=== PATIENT | female | born 1970 | race African-American/Black ===

== ENCOUNTER → 2016-04-07 | Outpatient (CLI) | payer MEDICARE, OTHER ==
[~2016-04-07] MED LIST: ACETAMINOPHEN PO; ADVAIR 250-501 EAC1 INH; ADVAIR 250-501 EACH INH; ADVAIR 2501 DISK W/D PO; ALB/IPRATROPIUM/1 E1 INH; ALBUTEROL 0.5ML INH; ALBUTEROL MININEB NEB; ALBUTEROL17 GM INH; ALDACTONE PO; ALDACTONE25 MG PO; ALPRAZOLAM PO; ALPRAZOLAM1 MG PO; AMITRIPTYLINE H25 MG PO; AMITRIPTYLINE H75 MG PO; ANTIVERT PO; ASPIRIN EC81 M1 PO; ASPIRIN81 M2 PO; AVANDIA PO; BUDESONIDE EC3 MG PO; CARBAMAZEPINE200 M3 PO; CARDIZEM60 M1 PO; CARVEDILOL6.25 MG PO; CIMZIA200 MG/KIT SQ; CIMZIA200 MG/KIT SUBQ; CIMZIA400 MG PO; CIMZIA400 MG/2 M SQ; CLOPIDOGREL75 MG PO; COLCHICINE PO; COMBIVENT INH14.7 GM INH; COMBIVENT RESPIM4 GM INH; COMBIVENT U/D3 M2 INH; COREG6.25 MG PO; COZAAR PO; COZAAR100 MG PO; CRESTOR PO; CRESTOR40 MG PO; DAKIN'S MODIF1000 ML TOP; DEXILANT60 MG PO; DILTIAZEM 24HR120 M1 PO; DILTIAZEM 24HR120 MG PO; DOXYCYCLINE PO; ENTOCORT EC3 MG PO; ENTYVIO300 MG; EQUETRO100 MG PO; FLEXERIL PO; GEODAN PO; GLUCOPHAGE XR750 MG PO; HUMALOG100 U/M2 SUBQ; HUMALOG100 U/ML; HUMALOG100 U/ML SUBQ; HUMALOG100 UNIT/1; HUMALOG100 UNIT/1 SUBQ; HUMALOG100 UNIT/2; HUMIRA; HYDROCODON-ACE1 EAC5 PO; HYDROCODONE-APA1 T54 PO; HYDROXYZINE HCL25 M1 PO; IMDUR-ER30 M1 PO; IMDUR-ER30 M3 PO; JANUVIA PO; JANUVIA100 MG PO; LANSOPRAZOLE30 M2 PO; LANTUS100 U/ML SUBQ; LASIX PO; LEVAQUIN750 MG PO; LEVEMIR FL100 UNIT/1 SUBQ; LEVEMIR SUBQ; LEVEMIR100 UNITS/ SUBQ; LISINOPRIL PO; LISINOPRIL30 MG PO; LORTAB 7.5-5001 TAB PO; LOSARTAN POTAS100 MG PO; LOTENSIN HCT 101 TAB PO; MEDI-MECLIZINE25 M1 PO; METFORMIN PO; MIRALAX17 GM DOB; MIRALAX17 GM PO; MOTION RELIEF25 MG PO; MULTI VITAMIN1 EACH PO; MULTIVITAMIN1 UDCAP PO; MULTIVITAMINS1 EAC3 PO; NITROSTAT0.4 MG PO; NITROSTAT0.4 MG SL; NORCO 10-325 TA1 TAB PO; NOVOLOG100 U/ML; OXYCODONE-ACET1 EAC1 PO; PARAFON FORTE500 M2 PO; PATIENT'S PHARMACY; PERCOCET10 PO; PHENERGAN PO; PHENERGAN25 M1; PREMARIN PO; PREVACID PO; PROVENTIL INH0.5 ML NEB; TEGRETOL PO; TEGRETOL-XR200 MG PO; UCERIS9 MG PO; VIBRAMYCIN100 M1 PO; VITAMIN D1000 UNI2 PO; VITAMIN D22000 UNIT PO; VITAMIN D250000 UNIT PO; VITAMIN D350000 UNIT PO; VOLTAREN 0.1%2.5 M1 TOP; VOLTAREN50 MG PO; XANAX1 MG PO
[2016-04-07 15:34] LABS: HEMATOCRIT 37.6 % (35.0-45.0); HEMOGLOBIN 12.5 gm/dL (12.0-16.0); MEAN CELL VOLUME 87.9 FL (83-96); MEAN CORPUSCULAR HEMOGLOBIN 29.1 PG (28-34); MEAN CORPUSCULAR HGB CONC 33.1 g/dL (30-36); MEAN PLATELET VOLUME 7.4 FL (6.5-11.5); RED BLOOD COUNT 4.28 X10e (3.90-5.30); RED CELL DISTRIBUTION WIDTH 15.1 % (11.0-15.5); WHITE BLOOD COUNT 8.5 X10e3 (4.0-10.5)
[2016-04-07 15:39] LABS: URINE APPEARANCE CLOUDY; URINE BACTERIA AUWI NEG (NEGATIVE); URINE BLOOD NEG (NEG); URINE COLOR DK YELLOW; URINE GLUCOSE NEG (NEG); URINE KETONE TRACE (NEG); URINE LEUKOCYTE ESTERASE 1+ (NEG); URINE NITRATE NEG (NEG); URINE PH 5.5 (5-8); URINE PROTEIN 1+ (NEG); URINE SPECIFIC GRAVITY 1.034 (1.003-1.035); URINE SQUAMOUS EPITHELIAL CELL MOD /[HPF]
[2016-04-07 15:47] LABS: URINE BILIRUBIN NEG (NEG); URINE MUCUS PRESENT
[2016-04-07 15:56] LABS: BLOOD UREA NITROGEN 12 mg/dL (9-23); CALCIUM SERUM 9.7 mg/dL (8.4-10.2); CARBON DIOXIDE 29 mmol/L (22-31); CHLORIDE 106 mmol/L (100-111); CREATININE SERUM 0.8 mg/dL (0.6-1.4); GLOM FILT RATE Estimated ABOVE60 mL/min (>60); GLUCOSE FASTING 101 mg/dL (70-110); SODIUM 143 mmol/L (135-145)
[2016-04-07 16:02] LABS: URINE SOURCE CLEAN CATCH
== END | disposition home or self-care (01) ==
LOC: CAMB 14:31
PROVIDERS: Orthopaedic Surgery
DX: R22.31 Localized swelling, mass and lump, right upper limb (principal)
CPT/HCPCS: 36415; 80048; 81003; 85027; 87086

== ENCOUNTER → 2016-04-10 | Day surgery (SDC) | payer MEDICARE, OTHER ==
--- NOTE | ~2016-04-10 | OR ---
Unit #: [id number] #: [id number] Patient: CLEMENT RODRIGEZ [id number] [address] [place], [place] [address] [id number] O MR#: [id number] NAME: CLEMENT RODRIGEZ ROOM: Date of Procedure: 04/10/2016 Admission Date: 04/10/2016 Surgeon: Deng Salamanca M.D. : 1970 Attending Physician: Deng Salamanca M.D. Primary Care Physician: Primary Care Physician No OPERATIVE REPORT PREOPERATIVE DIAGNOSIS Painful mass on left shoulder and arm. 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 PROCEDURE PERFORMED Excision of mass, left humerus. HISTORY AND FINDINGS The patient is a 45-year-old, who has been having progressively increasing pain in her left shoulder, which had been treated conservatively. Had an MRI revealed a mass, so she was evaluated by me. The nature of the problem was discussed with the patient and the treatment options of operative versus nonoperative treatment pros and cons of each was discussed. The patient wants to go with the procedure as she has been symptomatic. Procedure was explained including risks of anesthesia and complications of surgery and considering the location of the mass, injury to the axillary nodes and possibly the radial nerve and its implications have been fully reviewed. Also possible recurrence infection have also been discussed. The patient voices understanding and wishes to proceed and all questions have been answered. DESCRIPTION OF PROCEDURE After induction of general anesthesia, the patient was placed in the right lateral position in a silvestre bag with all bony prominences adequately padded. Then, the left shoulder and upper arm were prepped and draped free. Time-out was called. Operative site was confirmed. Then, by deep palpation, it was possible to feel the mass, measuring approximately 7 cm x 4 cm just distal to the posterior axillary fold in the arm. Skin incision approximately 6 to 7 cm long was made over the mass. Incision deepened down and by sharp dissection carried down to the subcutaneous tissue and by blunt dissection carried down to the deep fascia and by palpating the mass, the triceps muscle was split and glistening yellow lipomatous mass was seen visible through the triceps muscle which was dissected off the mass, both medially and laterally by blunt and sharp dissection. The inferior end of the mass was identified and the mass was found quite firmly adherent to the surrounding muscular tissue, so it could not be enucleated and had to be dissected off in certain areas. Then, there was a pedicle in the axillary fold near the quadrangular space. Precautions were taken to avoid any neurovascular injury, so the whole lobulated mass was excised in one piece making sure none was left Unit #: [id number] #: [id number] Patient: CLEMENT RODRIGEZ and sent for histopathological examination. The mass measured approximately 7 cm x 4 cm. Then, thorough irrigation was done and the triceps was approximated using 2-0 Vicryl and 2-0 Vicryl was used for the subcutaneous tissue and 3-0 nylon for the skin. Sterile compression dressing and a sling immobilization was given. Blood loss less than 10 mL. The patient received preoperative antibiotics, also received a block for pain management and she was transferred to the recovery room in satisfactory condition. POSTOPERATIVE INSTRUCTIONS 1. Ice packs to the left arm and miyag-dd-itpbte exercises. 2. [place] 10 mg p.o. q.6 hours p.r.n. 3. She was given a followup appointment. Return to my office in 2 weeks. If any problems to contact me. Dictated by... Moira Garcia/rishabh TD: 04/11/2016 02:45 JOB #: [id number] OPERATIVE REPORT X Deng Salamanca MD X PROCEDURE OPERATIVE NOTE
== END | disposition home or self-care (01) ==
LOC: CSUR 12:44
DX: M79.89 Other specified soft tissue disorders (principal); E65 Localized adiposity; E11.9 Type 2 diabetes mellitus without complications; I25.10 Atherosclerotic heart disease of native coronary artery without angina pectoris; I50.9 Heart failure, unspecified; J45.909 Unspecified asthma, uncomplicated; F17.210 Nicotine dependence, cigarettes, uncomplicated; Z86.73 Personal history of transient ischemic attack (TIA), and cerebral infarction without residual deficits; Z88.0 Allergy status to penicillin; Z88.1 Allergy status to other antibiotic agents; Z88.8 Allergy status to other drugs, medicaments and biological substances; Z79.4 Long term (current) use of insulin; Z79.82 Long term (current) use of aspirin; Z79.899 Other long term (current) drug therapy; Z90.49 Acquired absence of other specified parts of digestive tract; Z90.710 Acquired absence of both cervix and uterus; Z98.890 Other specified postprocedural states
CPT/HCPCS: 82947; 88304; J0690; J1650; J2250; J2405; J2795; J3010

== ENCOUNTER 2016-07-11 19:44 | Emergency (ER) | payer MEDICARE, OTHER ==
--- NOTE | ~2016-07-11 | CR172 ---
[facility] A Service of [facility] & [facility] RADIOLOGY TEXT RESULTS PATIENT: CLEMENT RODRIGEZ LOCATION: CFTX : [birth year] UNIT #: [id number] AGE: [address]: NEAL GALVEZ APRN SEX: F ORDER DR: [id number] [facility] [address] [place], [place] [address] [id number] E MR#: [id number] Acc #: [id number] NAME: CLEMENT RODRIGEZ. : 1970 SEX: F STUDY DATE/TIME: 07/11/2016 22:33 UNIT: [facility] ROOM: STUDY DESCRIPTION: CR Knee 3 Views Lt Attending Physician: Neal Galvez Aprn Ordering Physician: Neal Galvez Aprn Primary Care Physician: Shady Diaz M.D. MEDICAL IMAGING REPORT This report is preliminary unless electronic signature is present EXAM Left knee series 07/11/2016 HISTORY 46-year-old female in the ED complaining of left lateral knee pain and left lower leg pain after a fall yesterday. TECHNIQUE Three-view left knee series. FINDINGS No fracture, dislocation or other acute osseous abnormality is demonstrated. No visible knee joint effusion. IMPRESSION Negative left knee series. Dictated by... Stef Argueta M.D. THIS IS AN ELECTRONICALLY VERIFIED REPORT Stef Argueta M.D. at 07/12/2016 9:55 PM RGW/mak TD: 07/12/2016 09:43 JOB #: [id number] MEDICAL IMAGING REPORT Page 1 of 1 COPY
--- NOTE | ~2016-07-11 | CR126 ---
[facility] A Service of [facility] & [facility] RADIOLOGY TEXT RESULTS PATIENT: CLEMENT RODRIGEZ LOCATION: CFTX : [birth year] UNIT #: [id number] AGE: [address]: NEAL GALVEZ APRN SEX: F ORDER DR: [id number] [facility] [address] [place], [place] [address] [id number] E MR#: [id number] Acc #: [id number] NAME: CLEMENT RODRIGEZ. : 1970 SEX: F STUDY DATE/TIME: 07/11/2016 22:27 UNIT: [facility] ROOM: STUDY DESCRIPTION: CR Foot Complete Min 3 View Lt Attending Physician: Neal Galvez Aprn Ordering Physician: Neal Galvez Aprn Primary Care Physician: Shady Diaz M.D. MEDICAL IMAGING REPORT This report is preliminary unless electronic signature is present EXAM Left foot 07/11/2016 HISTORY 46-year-old female complaining of left knee pain extending into left lower leg and ankle with soft tissue swelling after a fall yesterday. TECHNIQUE Three-view left foot series. FINDINGS No fracture, dislocation or other acute osseous abnormality. Hallux valgus deformity with mild degenerative changes at the first MTP joint. IMPRESSION No acute osseous abnormality. Dictated by... Stef Argueta M.D. THIS IS AN ELECTRONICALLY VERIFIED REPORT Stef Argueta M.D. at 07/12/2016 9:55 PM RGW/mak TD: 07/12/2016 09:39 JOB #: [id number] MEDICAL IMAGING REPORT Page 1 of 1 COPY
--- NOTE | ~2016-07-11 | CR252 ---
[facility] A Service of [facility] & [facility] RADIOLOGY TEXT RESULTS PATIENT: CLEMENT RODRIGEZ LOCATION: CFTX : [birth year] UNIT #: [id number] AGE: [address]: NEAL GALVEZ APRN SEX: F ORDER DR: [id number] [facility] [address] [place], [place] [address] [id number] E MR#: [id number] Acc #: [id number] NAME: CLEMENT RODRIGEZ. : 1970 SEX: F STUDY DATE/TIME: 07/11/2016 22:29 UNIT: [facility] ROOM: STUDY DESCRIPTION: CR Tibia and Fibula 2 Views Lt Attending Physician: Neal Galvez Aprn Ordering Physician: Neal Galvez Aprn Primary Care Physician: Shady Diaz M.D. MEDICAL IMAGING REPORT This report is preliminary unless electronic signature is present EXAM Left tibia-fibula, 07/11/2016 HISTORY Left knee and left lower leg pain after a fall yesterday. TECHNIQUE AP and lateral radiographs of the left tibia and fibula. FINDINGS The examination is negative. No fracture, dislocation or other osseous abnormality. IMPRESSION Negative left tibia-fibula series. Dictated by... Stef Argueta M.D. THIS IS AN ELECTRONICALLY VERIFIED REPORT Stef Argueta M.D. at 07/12/2016 9:55 PM RGW/mak TD: 07/12/2016 09:42 JOB #: [id number] MEDICAL IMAGING REPORT Page 1 of 1 COPY
[~2016-07-11 19:44] MED LIST changes: -ACETAMINOPHEN PO; -ALDACTONE PO; -ALDACTONE25 MG PO; -ANTIVERT PO; -CARBAMAZEPINE200 M3 PO; -CIMZIA400 MG PO; -CLOPIDOGREL75 MG PO; -COMBIVENT RESPIM4 GM INH; -COZAAR PO; -CRESTOR PO; -ENTYVIO300 MG; -EQUETRO100 MG PO; -GLUCOPHAGE XR750 MG PO; -HUMALOG100 UNIT/1; -HUMALOG100 UNIT/1 SUBQ; -HUMALOG100 UNIT/2; -HYDROCODON-ACE1 EAC5 PO; -HYDROXYZINE HCL25 M1 PO; -IMDUR-ER30 M3 PO; -JANUVIA100 MG PO; -LANSOPRAZOLE30 M2 PO; -LEVAQUIN750 MG PO; -LISINOPRIL PO; -MULTIVITAMINS1 EAC3 PO; -NITROSTAT0.4 MG PO; -OXYCODONE-ACET1 EAC1 PO; -PATIENT'S PHARMACY; -PROVENTIL INH0.5 ML NEB; -VITAMIN D350000 UNIT PO; -VOLTAREN 0.1%2.5 M1 TOP
== END 2016-07-12 00:39 | disposition home or self-care (01) ==
LOC: CFTX 19:44 → CED 19:44 → CFTX 22:17
DX: S93.602A Unspecified sprain of left foot, initial encounter (principal); M25.562 Pain in left knee; I11.0 Hypertensive heart disease with heart failure; I50.9 Heart failure, unspecified; E11.9 Type 2 diabetes mellitus without complications; J44.9 Chronic obstructive pulmonary disease, unspecified; Z88.0 Allergy status to penicillin; Z88.8 Allergy status to other drugs, medicaments and biological substances; Z79.82 Long term (current) use of aspirin; Z79.899 Other long term (current) drug therapy; W18.30XA Fall on same level, unspecified, initial encounter; Y92.009 Unspecified place in unspecified non-institutional (private) residence as the place of occurrence of the external cause
CPT/HCPCS: 29505; 29540; 73562; 73590; 73630; 99284

== ENCOUNTER 2016-09-24 23:05 | Inpatient (IN) | payer MEDICARE, OTHER ==
[~2016-09-24] VITALS: Ht 177.8 cm; Wt 84.8 kg
--- NOTE | ~2016-09-24 | EKG ---
PATIENT: CLEMENT RODRIGEZ UNIT #: [id number] Ventricular Rate: 66 BPM Atrial Rate: 66 BPM P-R Interval: 192 ms QRS Duration: 90 ms Q-T Interval: 446 ms QTC Calculation(Bezet): 467 ms P [place]: 51 degrees Calculated R [place]: -23 degrees Calculated T [place]: 159 degrees Diagnosis Line: Normal sinus rhythm Diagnosis Line: T wave abnormality, consider anterolateral Diagnosis Line: ischemia Diagnosis Line: Prolonged QT Diagnosis Line: Abnormal ECG Diagnosis Line: When compared with ECG of 27-SEP-2016 07:44, Diagnosis Line: No significant change was found Diagnosis Line: Confirmed by LUIS BRADLEY MD ([id number]) on 09/28/2016 Diagnosis Line: 10:09:29 PM INTERPRETING MD: KIRK KHANNA
--- NOTE | ~2016-09-24 | OR ---
Unit #: [id number] #: [id number] Patient: CLEMENT RODRIGEZ [id number] [address] [address] [id number] I MR#: [id number] NAME: CLEMENT RODRIGEZ ROOM: [facility] Date of Procedure: 09/25/2016 Admission Date: 09/25/2016 Surgeon: Salazar Cain M.D. : 1970 Attending Physician: Yesy Guzman M.D. Primary Care Physician: Shady Diaz M.D. PROCEDURE OPERATIVE NOTE PREOPERATIVE DIAGNOSIS Respiratory failure, aspiration pneumonia. POSTOPERATIVE DIAGNOSIS AND FINDINGS 1. Respiratory failure, aspiration pneumonia, clear airway tree. 2. No endobronchial mass or lesion. 3. No excessive secretions. PROCEDURE PERFORMED Diagnostic bronchoscopy with bronchial washing. ANESTHESIA The patient is on propofol drip. COMPLICATIONS None. PROCEDURE An informed consent was obtained from the patient's mother after explaining the benefits and risks of this procedure. The patient was prepped and positioned appropriately. The bronchoscope was advanced through her ET tube and at the level of the rimma normal saline flushes were instilled and bronchial washing was obtained. Then the bronchoscope was advanced into the left main bronchus and the left upper lobe lingula and left lower lobe were examined thoroughly and appeared normal with no endobronchial mass or excessive secretions. Bronchial washing was obtained from the left lower lobe, which will be sent for microbiology and cytology. The bronchoscope was retracted and then readvanced into the right main bronchus and the right upper lobe, right middle lobe and right lower lobe were examined, which appeared normal with no endobronchial masses or secretions. The bronchoscope was retracted out then and the patient tolerated the procedure well with no immediate complications. Dictated by... Salazar Cain M.D. Unit #: [id number] #: [id number] Patient: CLEMENT RODRIGEZ EA/gz TD: 09/25/2016 14:02 JOB #: [id number] PROCEDURE OPERATIVE NOTE Page 1 of 1 X SALAZAR GOODEN MD PROCEDURE OPERATIVE NOTE
--- NOTE | ~2016-09-24 | HP ---
Unit #: [id number] #: [id number] Patient: CLEMENT DELONG [id number] [address] [place], [place] [address] [id number] I MR#: [id number] NAME: CLEMENT DELONG. ROOM: [facility] Age: 46 Sex: F Admission Date: 09/25/2016 : 1970 Attending Physician: Yesy Guzman M.D. Primary Care Physician: Shady Diaz M.D. HISTORY AND PHYSICAL ADMISSION DIAGNOSES 1. Acute respiratory failure. 2. Aspiration pneumonia. 3. Insulin-dependent diabetes with hyperglycemia with blood glucose over 600 at time of admission. 4. History of TIA. 5. History of coronary artery disease. 6. COPD. 7. Bipolar disorder. HISTORY OF PRESENT ILLNESS Ms. Delong is a 46-year-old female with extensive past medical history including coronary artery disease, diabetes, Crohn disease, COPD, hypertension, bipolar disorder, TIA and anemia of chronic disease who apparently fell ill yesterday, started vomiting. She was brought to the emergency room, was found in acute respiratory failure, was intubated. Her initial blood glucose was 600. Was admitted to the ICU on mechanical ventilation. CT of the chest showed left lower lobe pneumonia. She was treated with antibiotics and bronchodilators. Made good progress and was extubated today. Currently she denies any other problems. Denies any chest pain, shortness of air, headache, dizziness, fever, chills, nausea, vomiting, diarrhea or abdominal pain. REVIEW OF SYSTEMS A 12-point review of systems on this patient is basically negative except as above. PAST MEDICAL HISTORY As above in HPI. PAST SURGICAL HISTORY Significant for hysterectomy, appendectomy, neck fusion, coronary artery stent placement. HOME MEDICATIONS Include Advair, Combivent, Proventil, alprazolam, aspirin, Uceris, carbamazepine, Coreg, simians, Crestor, Dexilant, diltiazem, lispro sliding scale and 20 units t.i.d. with meals, [place] 10, Imdur, Cozaar, Levemir 60 units b.i.d., meclizine, Glucophage, MiraLAX, multivitamin, Nitrostat, vitamin D2, Januvia. ALLERGIES Penicillin, clindamycin, gabapentin. Unit #: [id number] #: [id number] Patient: CLEMENT DELONG SOCIAL HISTORY No current history of tobacco, alcohol or illicit drugs. FAMILY HISTORY Family history is significant for diabetes and hypertension. PHYSICAL EXAMINATION GENERAL: She is a 46-year-old female in no acute distress. VITAL SIGNS: BP 114/75, heart rate 82, respirations 16, temperature 100.2. HEENT: Head is atraumatic. Pupils are equal, round and reactive to light and accommodation. Extraocular muscles are intact. Oropharynx is clear. NECK: Neck is supple. No masses. No JVD. No bruit. RESPIRATORY: Chest is diminished bilaterally. CARDIOVASCULAR: S1, S2. No murmurs. ABDOMEN: Abdomen is soft, nontender, nondistended. EXTREMITIES: Lower extremities have no cyanosis, clubbing or edema. NEUROLOGIC: Patient grossly intact. No focal deficits. LABS AND DIAGNOSTICS IMAGING: Chest x-ray negative. CT as above. CT of abdomen and pelvis negative. LABORATORY: Chemistry this morning - Her blood glucose is 150, BUN and creatinine 13 and 1. Coagulation panel unremarkable. Troponin elevated at 0.21. White count 14.5. ASSESSMENT AND PLAN 1. Acute respiratory failure status post extubation. Continue bronchodilators. Pulmonary following. 2. Aspiration pneumonia. Will start on Levaquin. Initially it was written for clindamycin; however, the patient does have an allergy to clindamycin. She is also allergic to penicillin, so I cannot do Zosyn. We will go and start on Levaquin. 3. History of coronary artery disease with elevated troponin. Will ask cardiology for a consult. Trend troponin. 4. Dysphagia with aspiration on the swallow study. Will keep NPO, reevaluate tomorrow. 5. Insulin-dependent diabetes. Continue per Dr. Rudolph, who is following. 6. History of TIA in the past. 7. COPD, as above. 8. History of bipolar disorder. 9. GI and DVT prophylaxis. Continue IV PPI and Lovenox. Dictated by Moira Martines/kandy TD: 09/26/2016 11:26 JOB #: [id number] Unit #: [id number] #: [id number] Patient: CLEMENT DELONG HISTORY AND PHYSICAL Page 1 of 1 X Golden Khalil MD HISTORY AND PHYSICAL
--- NOTE | ~2016-09-24 | CO ---
Unit #: [id number] #: [id number] Patient: CLEMENT DELONG [id number] [facility] [address] [place], [place] [address] [id number] Néstor MR#: [id number] NAME: CLEMENT DELONG. ROOM: 568 Age: 46 Sex: F Admission Date: 09/25/2016 : 1970 Attending Physician: eYsy Guzman M.D. Primary Care Physician: Shady Diaz M.D. CONSULTATION REPORT REASON FOR CONSULTATION Abnormal troponin. HISTORY OF PRESENT ILLNESS Ms. Delong is a pleasant 46-year-old female, seen in room ICU 15 at [facility]. She has a history of coronary artery disease, status post stenting in the RCA she states in around 2009 at [facility]. I could not find these records in [facility]. She has a history of Crohn disease, diabetes, COPD, anemia, hypertension, bipolar disorder, continued smoking, and probable aspiration pneumonia. She felt very sick yesterday. Reported no fever, chills, night sweats, cough or sore throat, and was admitted and intubated in the field. The family thought she might have aspirated some of her vomitus when she became sick. She states to me that she had noted chest pain for the past several days. It would come on without exertion, and was relieved spontaneously within about 5 minutes. After she was extubated, she still reported some on and off chest discomfort, centered in the left parasternal region, radiated into the neck and to the shoulder. I reviewed her ECG, which showed no acute ST changes, at 2338 hours yesterday. PAST MEDICAL HISTORY 1. Coronary artery disease, status post RCA stent. 2. Diabetes. 3. Dyslipidemia. 4. Hypertension. 5. Crohn disease. 6. COPD with continued smoking. 7. Bipolar disorder. 8. History of TIA. 9. History of GERD. SOCIAL HISTORY Smoker. No alcohol or drug abuse. Does not have children. PAST SURGICAL HISTORY Hysterectomy, appendectomy, neck fusion, RCA stent placed in 2009 at [facility]. Records are pending. Unit #: [id number] #: [id number] Patient: CLEMENT DELONG FAMILY HISTORY Negative for premature atherosclerotic disease, but positive for diabetes and hypertension. ALLERGIES Penicillin, morphine, clindamycin, Neurontin, hydromorphone. REVIEW OF SYSTEMS A 12-point review of systems otherwise negative except as stated above. MEDICATIONS Advair, Combivent, Proventil, alprazolam, aspirin, carbamazepine, Coreg, Crestor, Cimzia, Uceris, Dexilant, diltiazem, Humalog, hydrocodone, Imdur, Cozaar, Levemir, meclizine, Glucophage, MiraLAX, multivitamin, Nitrostat, Januvia, vitamin D2. PHYSICAL EXAMINATION GENERAL: Pleasant, alert, in no acute distress. VITAL SIGNS: Heart rate is 72 and regular, respiratory rate is 20, blood pressure 104/68, height 5 feet 10 inches, weight 187 pounds, BMI 26. SKIN: Warm and dry. No xanthelasma. MUSCULOSKELETAL: No missing digits. Moves easily for evaluation. NEUROLOGICAL: Appropriate mood and affect. Alert and oriented x3. HEENT: Pupils equal, round and reactive. No oral cyanosis. No icterus. NECK: Carotids clear to auscultation with no carotid bruits. Normal carotid upstroke bilaterally. Thyroid is normal in size and texture without masses or tenderness. CHEST: Inspiratory/expiratory wheezes. CARDIAC: Normal point of maximum impulse. Normal S1 and S2. No S3, S4 or rub. ABDOMEN: No hepatosplenomegaly, masses or tenderness. Normal bowel sounds. No abdominal bruits heard. EXTREMITIES: Very tender distal extremities bilaterally without edema. DIAGNOSTIC STUDIES CARDIOVASCULAR STUDIES: ECG is as noted above. LABORATORY RESULTS: Fasting glucose 114, creatinine 0.7, potassium 3.1. Troponin was 0.22 at 2105 last evening, and 0.15 at 0320 this morning. TSH is 0.78. Hemoglobin 11.2, white blood count 11.8, platelet count 195,000. IMPRESSION 1. Acute non-ST elevation myocardial infarction with recent angina, and prior right coronary artery stent in 2009 at [facility]. 2. Hypertension. 3. Diabetes. 4. Dyslipidemia. 5. Aspiration pneumonia with chronic obstructive pulmonary disease, continued tobacco abuse. 6. Negative family history for coronary artery disease. RECOMMENDATIONS 1. We will get her on anticoagulation. I will review the echo that was done today. We will trend the troponins and check an ECG in the morning. We will give her some Lasix 20 mg now and in 6 hours. 2. Continue lipid therapy. She was already on Coreg also, as well as the other appropriate medications. Unit #: [id number] #: [id number] Patient: CLEMENT DELONG 3. Start spironolactone. 4. Follow electrolytes. Thank you very much for this consultation. We will follow with you. Dictated by... Moira Díaz/rishabh TD: 09/27/2016 06:35 JOB #: [id number] CONSULTATION REPORT Page 1 of 1 X Hieu Farooq MD X CONSULTATION REPORT
--- NOTE | ~2016-09-24 | CR72 ---
[facility] A Service of [facility] & [facility] RADIOLOGY TEXT RESULTS PATIENT: CLEMENT RODRIGEZ LOCATION: [facility] 568-01 : [birth year] UNIT #: [id number] AGE: [address]: Yesy Guzman MD SEX: F ORDER DR: [id number] [facility] [address] [place], [place] [address] [id number] I MR#: [id number] Acc #: [id number] NAME: CLEMENT RODRIGEZ : 1970 SEX: F STUDY DATE/TIME: 09/24/2016 23:36 UNIT: [facility] ROOM: [facility] STUDY DESCRIPTION: CR Chest Single View Portable Attending Physician: Yesy Guzman M.D. Ordering Physician: Lenore Hauser M.D. Primary Care Physician: Shady Diaz M.D. MEDICAL IMAGING REPORT This report is preliminary unless electronic signature is present EXAM Portable chest, 09/24 at 23:36 INDICATION Respiratory failure currently this evening. History of hypertension. Tube placement. FINDINGS AP portable chest is compared with 02/15/2016. There is mild cardiomegaly. ET tube mid trachea. The lungs are clear and there is no pneumothorax. Dictated by... Rishi Echavarria Jr., M.D. THIS IS AN ELECTRONICALLY VERIFIED REPORT Rishi Echavarria Jr., M.D. at 09/28/2016 5:50 AM YAMEL/ana TD: 09/25/2016 10:25 JOB #: [id number] MEDICAL IMAGING REPORT Page 1 of 1 COPY
--- NOTE | ~2016-09-24 | CT114 ---
[facility] A Service of [facility] & [facility] RADIOLOGY TEXT RESULTS PATIENT: CLEMENT RODRIGEZ LOCATION: [facility] 568-01 : [birth year] UNIT #: [id number] AGE: [address]: Yesy Guzman MD SEX: F ORDER DR: [id number] [facility] [address] [place], [place] [address] [id number] I MR#: [id number] Acc #: [id number] NAME: CLEMENT RODRIGEZ. : 1970 SEX: F STUDY DATE/TIME: 09/25/2016 01:19 UNIT: [facility] ROOM: [facility] STUDY DESCRIPTION: CT Soft Tissue Neck W Cont Attending Physician: Yesy Guzman M.D. Ordering Physician: Lenore Hauser M.D. Primary Care Physician: Shady Diaz M.D. MEDICAL IMAGING REPORT This report is preliminary unless electronic signature is present EXAM Neck CT, 09/25 at 01:19 INDICATION Patient vomiting blood. Patient feels like choking. Shortness of air and chest pain and abdominal pain today. TECHNIQUE Axial images were obtained through the neck following IV contrast administration. Multiplanar reformats were obtained. This CT exam was performed with one or more of the following radiation dose reduction techniques: automatic exposure control, adjustment of mA and/or kV according to patient size, and iterative reconstruction. COMPARISON Neck CT angiogram from 11/20/2015. FINDINGS Endotracheal tube is present. The visualized thyroid grossly normal. Given the presence of the endotracheal tube, I cannot assess the larynx or the epiglottis. Salivary glands are normal. No adenopathy. The floor of the mouth is normal allowing for the tube pushing the tongue to the left. This also distorts the tonsillar tissues. They are slightly asymmetric but I believe this is due to mass effect rather than a true tonsillar abnormality. Patient is status post C4-C6 anterior plate and screw fusion. Cervical alignment is normal. Prevertebral soft tissues are normal. IMPRESSION 1. Endotracheal tube limits evaluation of the floor of the mouth as well as the larynx and epiglottis. 2. No adenopathy or masses are seen in the neck and there is no tissue STS. [facility] A Service of [facility] & [facility] RADIOLOGY TEXT RESULTS PATIENT: CLEMENT RODRIGEZ LOCATION: [facility] 568-01 : [birth year] UNIT #: [id number] AGE: [address]: Yesy Guzman MD SEX: F ORDER DR: jimi. 3. The exam is felt to be normal allowing for the presence of the ET tube. Patient is status post cervical fusion. Dictated by... Rishi Echavarria Jr., M.D. THIS IS AN ELECTRONICALLY VERIFIED REPORT Rishi Echavarria Jr., M.D. at 09/28/2016 5:51 AM YAMEL/ana TD: 09/25/2016 10:44 JOB #: [id number] MEDICAL IMAGING REPORT Page 1 of 1 COPY
--- NOTE | ~2016-09-24 | CO ---
Unit #: [id number] #: [id number] Patient: CLEMENT RODRIGEZ [id number] [address] [place], [place] [address] [id number] I MR#: [id number] NAME: CLEMENT RODRIGEZ. ROOM: 568 Age: 46 Sex: F Admission Date: 09/25/2016 : 1970 Attending Physician: Yesy Guzman M.D. Primary Care Physician: Shady Diaz M.D. Consultation Date: 09/29/2016 CONSULTATION REPORT DICTATED FOR Devon Meraz M.D. PRIMARY CARE PHYSICIAN Shady Diaz M.D. REASON FOR CONSULT Nausea, vomiting, abdominal pain, and dysphagia. HISTORY OF PRESENT ILLNESS The patient is a very pleasant, 46-year-old, female with significant past medical history, including type 2 diabetes, COPD, Crohn disease, coronary artery disease, hypertension, TIA, and bipolar disorder. The patient apparently had been in her usual state of health, until 2 weeks ago, she had developed persistent dysphagia associated with odynophagia and globus sensation also with nausea, vomiting, and upper abdominal pain. Symptoms had progressively worsen. She had a bout of severe nausea and vomiting with an episode of hematemesis. EMS was then called, and she was found to be in acute respiratory failure. Subsequently, she was intubated. The patient was also noted to have elevated troponin consistent with non-STEMI. She is status post PCI with stent. She continues to complain of difficulty with eating and drinking. She mentions persistent pain with swallowing and constantly feels as if there is a lump in the back of her throat. Nausea has improved slightly, but still has upper abdominal discomfort, mainly in the epigastric area. PAST MEDICAL HISTORY Type 2 diabetes mellitus, Crohn disease, coronary artery disease, COPD, anemia, chronic disease, hypertension, GERD, and bipolar disorder. PAST SURGICAL HISTORY Hysterectomy, appendectomy, neck fusion, and coronary artery stent placement. FAMILY HISTORY Diabetes and hypertension. None for colon, pancreatic cancer, or liver disease. SOCIAL HISTORY The patient smokes half a pack a day. Denies alcohol and illicit drug use. ALLERGIES Penicillin, clindamycin, and gabapentin. Unit #: [id number] #: [id number] Patient: CLEMENT RODRIGEZ HOME MEDICATIONS Include: 1. Advair. 2. Combivent. 3. Proventil. 4. Alprazolam. 5. Aspirin. 6. Uceris. 7. Coreg. 8. Cimzia. 9. Crestor. 10. Dexilant. 11. Diltiazem. 12. Lispro, sliding scale. 13. [place]. 14. Imdur. 15. Cozaar. 16. Levemir. 17. Meclizine. 18. Glucophage. 19. MiraLAX. 20. Multivitamin. 21. Nitrostat. 22. Vitamin D2. 23. Januvia. REVIEW OF SYSTEMS Detailed review of organ systems significant for dysphagia to solids and liquids, odynophagia, nausea, vomiting, upper abdominal pain, hoarseness of voice, and chest pain. No fever or chills. No history of significant weight loss. The rest of the 12-point review of systems is unremarkable. PHYSICAL EXAMINATION GENERAL: The patient is awake, alert, comfortable in no acute distress. VITAL SIGNS: Stable with temperature 97.7, blood pressure 169/87, heart rate 69, and respirations 16. HEENT: No pallor. No scleral icterus. No lymphadenopathy. EXTREMITIES: She does have trace pedal edema bilaterally. DIAGNOSTIC STUDIES LABORATORY RESULTS: BMP notable for glucose 296. BUN and creatinine are within normal limits. LFTs initially upon admission were within normal limits. INR 1.0. CBC notable for hemoglobin 9.7, MCV 87.1, WBC 8.9, and platelet 158. IMAGING STUDY CT of soft tissue of neck shows no adenopathy or masses. Chest CT shows dense left lower lobe consolidation, concerning for aspiration and fluid in the esophagus, suggesting gastroesophageal reflux. CT of abdomen and pelvis was unremarkable. ASSESSMENT 1. Dysphagia with odynophagia and globus sensation. 2. Nausea and vomiting. 3. Epigastric pain. 4. Aspiration pneumonia. 5. Unl-AF-ocbtemd elevation myocardial infarction, status post percutaneous coronary intervention with stent, on anticoagulation. Unit #: [id number] #: [id number] Patient: CLEMENT RODRIGEZ PLAN In view of persistent symptoms, a diagnostic upper GI endoscopy is warranted. If this possible, the patient may have esophageal stricture, ulcerative esophagitis as well as neoplasia. In view of patient being status post percutaneous coronary intervention with stents and on anti-platelet therapy, no dilation or biopsy will be done. If esophageal dilation is necessary, the patient will need repeat EGD in 3 or 4 months or when anti-platelet can be stopped. The patient and plan of care discussed in detail with Dr. Meraz and further recommendations to follow. Thank you very much for asking us to see this patient. We appreciate the consult. Dictated by... LIANE Erwin/rishabh TD: 09/30/2016 06:54 JOB #: [id number] CC: Moira Rose M.D. CONSULTATION REPORT Page 1 of 1 X X CONSULTATION REPORT
--- NOTE | ~2016-09-24 | CO ---
Unit #: [id number] #: [id number] Patient: CLEMENT RODRIGEZ [id number] [address] [address] [id number] I MR#: [id number] NAME: CLEMENT RODRIGEZ. ROOM: 568 Age: 46 Sex: F Admission Date: 09/25/2016 : 1970 Attending Physician: Yesy Guzman M.D. Primary Care Physician: Shady Diaz M.D. Consultation Date: 09/25/2016 CONSULTATION REPORT HISTORY OF PRESENT ILLNESS This is a 46-year-old black female, who has history of multiple medical problems including type 2 diabetes mellitus, who presented to the emergency room for feeling sick to her stomach, severe vomiting, increasing shortness of air. EMS was called. She was intubated in the field for airway protection. She is currently extubated. Her blood sugars on admission were above 600. She was initiated on insulin drip, which was discontinued this morning. I have been asked to see the patient for further management. PAST MEDICAL HISTORY Type 2 diabetes mellitus, Crohn disease, coronary artery disease, COPD, anemia of chronic disease, dujwdcq29/09/2016nsion, GERD, bipolar disorder. SOCIAL HISTORY Smoker. No history of alcohol or drug abuse. PAST SURGICAL HISTORY Hysterectomy, appendectomy, neck fusion, coronary artery stent placement. FAMILY HISTORY Diabetes, hypertension. MEDICATIONS No medications ALLERGIES Penicillin, morphine, clindamycin, Neurontin, hydromorphone. BODY AFTER AXIS REVIEW OF SYSTEMS Remarkable for the weakness, hoarseness of voice. No fever or chills. Rest of the 12-point review of systems unremarkable. PHYSICAL EXAMINATION GENERAL: The patient is lying comfortably in no acute distress. VITAL SIGNS: Temperature 100.2, pulse 91, respirations 16, and blood pressure 98.6. HEENT: EOMI. Pupils equally reactive to light. NECK: Supple. No thyromegaly noted. CHEST: Good air entry. CVS: Regular rhythm. No murmurs. ABDOMEN: Soft and nontender. Bowel sounds positive. Unit #: [id number] #: [id number] Patient: CLEMENT RODRIGEZ EXTREMITIES: No edema noted. DIAGNOSTIC STUDIES LABORATORY RESULTS: Reviewed. CMP is within normal limits. A1c is pending. ASSESSMENT 1. Hyperosmolar hyperglycemia. Blood sugars are improved at this time. 2. Acute respiratory failure, post extubation. 3. Poor compliance. PLAN I agree with this time. Starting the subcu insulin, Levemir 20 units subcu b.i.d. Start medium dose supplement sliding scale. Accu-Cheks every 4 hourly. Monitor electrolytes. Advance diet as tolerated. The patient is awaiting for swallowing study. We will continue to follow for further management. Dictated by... Moira Dodge/rishabh TD: 09/26/2016 15:07 JOB #: [id number] CONSULTATION REPORT Page 1 of 1 X Leticia Rudolph MD X CONSULTATION REPORT
--- NOTE | ~2016-09-24 | EKG ---
PATIENT: CLEMENT RODRIGEZ UNIT #: [id number] Ventricular Rate: 59 BPM Atrial Rate: 59 BPM P-R Interval: 184 ms QRS Duration: 92 ms Q-T Interval: 468 ms QTC Calculation(Bezet): 463 ms P [place]: 50 degrees Calculated R [place]: -45 degrees Calculated T [place]: 175 degrees Diagnosis Line: Sinus bradycardia Diagnosis Line: Left anterior fascicular block Diagnosis Line: ST and T wave abnormality, consider inferior Diagnosis Line: ischemia Diagnosis Line: ST and T wave abnormality, consider anterolateral Diagnosis Line: ischemia Diagnosis Line: Prolonged QT Diagnosis Line: Abnormal ECG Diagnosis Line: When compared with ECG of 24-SEP-2016 23:38, Diagnosis Line: Vent. rate has decreased BY 46 BPM Diagnosis Line: Criteria for Septal infarct are no longer Present Diagnosis Line: T wave inversion now evident in Inferior leads Diagnosis Line: T wave inversion more evident in Anterolateral Diagnosis Line: leads Diagnosis Line: Confirmed by LUSI BRADLEY MD ([id number]) on 09/27/2016 Diagnosis Line: 6:03:24 PM INTERPRETING MD: KIRK KHANNA
--- NOTE | ~2016-09-24 | EKG ---
PATIENT: CLEMENT RODRIGEZ UNIT #: [id number] Ventricular Rate: 56 BPM Atrial Rate: 56 BPM P-R Interval: 196 ms QRS Duration: 98 ms Q-T Interval: 442 ms QTC Calculation(Bezet): 426 ms P [place]: 48 degrees Calculated R [place]: -39 degrees Calculated T [place]: 167 degrees Diagnosis Line: Sinus bradycardia Diagnosis Line: Left axis deviation Diagnosis Line: T wave abnormality, consider anterolateral Diagnosis Line: ischemia Diagnosis Line: Abnormal ECG Diagnosis Line: When compared with ECG of 28-SEP-2016 05:52, Diagnosis Line: (unconfirmed) Diagnosis Line: No significant change was found Diagnosis Line: Confirmed by LUIS BRADLEY MD ([id number]) on 09/28/2016 Diagnosis Line: 10:16:09 PM INTERPRETING MD: KIRK KHANNA
--- NOTE | ~2016-09-24 | OR ---
Unit #: [id number] #: [id number] Patient: CLEMENT RODRIGEZ [id number] [address] [place], [place] [address] [id number] I MR#: [id number] NAME: CLEMENT RODRIGEZ. ROOM: 568 Date of Procedure: 09/30/2016 Admission Date: 09/25/2016 Surgeon: Devon Meraz M.D. : 1970 Attending Physician: Yesy Guzman M.D. Primary Care Physician: Shady Diaz M.D. OPERATIVE REPORT PREOPERATIVE DIAGNOSES Dysphagia and odynophagia. PROCEDURES PERFORMED Upper gastrointestinal endoscopy and biopsy. POSTOPERATIVE DIAGNOSES The patient had mild prepyloric antral erosive gastritis. Otherwise, examination was normal up to third part of the duodenum. Specifically, no esophagitis or esophageal stricture or mucosal ring was seen. Also, posterior hypopharynx was normal. RECOMMENDATIONS 1. Lansoprazole 30 mg p.o. daily. 2. The patient can be discharged home from a gastrointestinal standpoint. SEDATION USED MAC. DESCRIPTION OF PROCEDURE Following detailed explanation of potential risks and complications of an upper endoscopy, namely perforation, bleeding, and complications related to sedation, the patient was brought to GI lab and laid in the left lateral decubitus position. Lubricated tip of the Olympus video upper endoscope was passed through the bite block into the proximal esophagus under direct vision. The entire esophageal mucosa was examined and appeared normal. Z-line was nicely demarcated with there being no esophagitis or hiatus hernia. The scope was then advanced into the gastric cavity and the latter was insufflated. Mucosa of the fundus, body, and antrum was examined and mild prepyloric antral gastritis was noted in the form of linear erythematous streaks and erosions. Pylorus was intubated with visualization of the normal duodenal bulb and second and third part of the duodenum. Upon withdrawal and retroflexion, the incisura, cardia, and greater curve were examined and no additional findings were noted. Biopsy was obtained from the antrum for CLOtest. The scope was then withdrawn into the distal esophagus. Entire esophageal mucosa was examined all the way up to pharynx. No additional findings were noted. The patient tolerated the procedure without any postprocedure complications. Dictated by... Unit #: [id number] #: [id number] Patient: CLEMENT RODRIGEZ M.D. AK/rishabh TD: 09/30/2016 13:59 JOB #: [id number] CC: Yesy Guzman M.D. OPERATIVE REPORT Page 1 of 1 X Devon Meraz MD X PROCEDURE OPERATIVE NOTE
--- NOTE | ~2016-09-24 | CT55 ---
[facility] A Service of [facility] RADIOLOGY TEXT RESULTS PATIENT: CLEMENT RODRIGEZ LOCATION: [facility] 568-01 : [birth year] UNIT #: [id number] AGE: [address]: Yesy Guzman MD SEX: F ORDER DR: [id number] [facility] [address] [place], [place] [address] [id number] I MR#: [id number] Acc #: [id number] NAME: CLEMENT RODRIGEZ. : 1970 SEX: F STUDY DATE/TIME: 09/25/2016 01:24 UNIT: [facility] ROOM: [facility] STUDY DESCRIPTION: CT Chest W Con Attending Physician: Yesy Guzman M.D. Ordering Physician: Lenore Hauser M.D. Primary Care Physician: Shady Diaz M.D. MEDICAL IMAGING REPORT This report is preliminary unless electronic signature is present EXAM Chest CT 09/25 at 01:24. INDICATIONS Vomiting blood today. Feels like choking. Shortness of air and chest pain today. TECHNIQUE Axial images were obtained through the chest following IV contrast administration. This CT exam was performed with one or more of the following radiation dose reduction techniques: Automatic exposure control, adjustment of mA and/or kV according to patient size, and iterative reconstruction. COMPARISON Comparison made with chest CT from 03/11/2012 and chest x-ray from 09/24/2016. FINDINGS ET tube is in good position in the mid trachea. There is fluid in the esophagus suggesting reflux. No pericardial or pleural effusion. No adenopathy. Dense consolidation IN the majority of the left lower lobe may reflect atelectasis but aspiration could have this appearance. There is some atelectatic appearing density in the right lower lobe. There is no pneumothorax or pneumomediastinum. For description of findings in the upper abdomen, see the abdomen and pelvis CT report dictated separately. IMPRESSION 1. Well-positioned ET tube. 2. Dense left lower lobe consolidation with air bronchograms certainly concerning for aspiration. This appears to be an overall new finding since the earlier chest x-ray this evening. Some of this could be due to atelectasis as there is some mild atelectasis in the right STS. [facility] A Service of [facility] RADIOLOGY TEXT RESULTS PATIENT: CLEMENT RODRIGEZ LOCATION: [facility] 568-01 : [birth year] UNIT #: [id number] AGE: [address]: Yesy Guzman MD SEX: F ORDER DR: lower lobe. No pneumothorax. No evidence of pneumomediastinum. 3. Fluid in the esophagus suggesting gastroesophageal reflux. Dictated by... Rishi Echavarria Jr., M.D. THIS IS AN ELECTRONICALLY VERIFIED REPORT Rishi Echavarria Jr., M.D. at 09/28/2016 5:51 AM YAMEL/jo TD: 09/25/2016 10:45 JOB #: [id number] MEDICAL IMAGING REPORT Page 1 of 1 COPY
--- NOTE | ~2016-09-24 | DS ---
Unit #: [id number] #: [id number] Patient: DAYAMI DELONG [id number] [address] [address] [id number] I MR#: [id number] NAME: DAYAMI DELONG ROOM: 568 Age: 46 Sex: F Admission Date: 09/25/2016 : 1970 Discharge Date: 09/29/2016 Attending Physician: Yesy Guzman M.D. Primary Care Physician: Shady Diaz M.D. DISCHARGE SUMMARY FINAL DIAGNOSES 1. Acute hypoxic respiratory failure which is resolved. 2. Aspiration pneumonia. 3. Non-ST elevation myocardial infarction. 4. Coronary artery disease, status post cath on 09/28 shows 80% right coronary artery, status post stent placement by Dr. Ureña. 5. Hypertension. 6. Hyperlipidemia. 7. Diabetes mellitus. 8. Ejection fraction of 55-60%. 9. Chronic obstructive pulmonary disease. DISCHARGE MEDICATIONS Are: 1. Albuterol inhaler q.i.d. p.r.n. 2. Advair 250/50, one inhalation b.i.d. 3. Carbamazepine 200 mg daily. 4. Glucophage 750 mg b.i.d. 5. Januvia 100 mg daily. 6. Meclizine 25 mg t.i.d. p.r.n. 7. Alprazolam 1 mg p.o. b.i.d. p.r.n. 8. Coreg 6.25 mg b.i.d. 9. Diltiazem has been discontinued. 10. MiraLAX 17 grams b.i.d. 11. Crestor 40 mg q. h.s. 12. Cozaar 100 mg daily. 13. Insulin 20 units subcu b.i.d. 14. Insulin sliding scale, continue home dose. 15. Levemir 10 units subcu b.i.d. Please note, that has been changed. Dose of Levemir has been changed because patient was having hypoglycemia. 16. Multivitamin daily. 17. Aspirin 81 mg daily. 18. Continue hydrocodone home dose. 19. Spironolactone 25 mg daily. 20. Dexilant 60 mg b.i.d. 21. Levaquin 750 mg daily for three more days. 22. Imdur ER has been discontinued. 23. Nitroglycerin p.r.n. 24. Plavix 75 mg p.o. daily. CONSULTATION DURING HOSPITALIZATION 1. Dr. Ureña from Cardiology Services. 2. Dr. Rudolph from Endocrinology Services. Unit #: [id number] #: [id number] Patient: DAYAMI DELONG 3. Dr. Henrique Cain from Pulmonary Services. ADMITTING PHYSICIAN Dr. Khalil. DISCHARGING PHYSICIAN Dr. Yesy Guzman. LAB WORKUP ON DISCHARGE Sodium 136, potassium 3.6, chloride 104, BUN 12, creatinine 0.6, calcium 8.3, total cholesterol 195, LDL 144, triglycerides 88, magnesium 1.6. CBC on discharge shows WBC 8.9, hemoglobin 9.7, hematocrit 28.6 and platelet count of 158. PROCEDURE PERFORMED DURING HOSPITALIZATION 1. Cardiac cath, status post angioplasty by Dr. Ureña on 09/28/16. 2. Bronchoscopy which was diagnostic, done by Dr. Cain. No endobronchial mass/lesion, no excessive secretion seen. HOSPITAL COURSE Ms. Dayami Delong is a 46-year-old -[place] female who was admitted to the hospital with shortness of breath and vomiting. Patient was found to be in acute respiratory failure. Her initial blood sugar was 600. Was admitted to ICU. Patient was on mechanical ventilation. CT scan showed left lower lobe pneumonia. Patient was started on broad spectrum IV antibiotic per Dr. Cain. The patient is doing much better at this time. The patient is on Levaquin. That needs to be continued to 10/02/16. Dr. Ureña was consulted. Patient had abnormal troponin and had non-ST elevation CO. Cardiac cath was done which showed 80% in-stent RCA, status post angioplasty done. The patient is feeling much better, has no complaint of chest pain. Brilinta has been discontinued and Plavix is being started. The patient will see Dr. Ureña in eight weeks or so. EXAMINATION ON DISCHARGE Blood pressure is 178/97, respiratory rate 16, pulse is 63, temperature 98.6, oxygen saturation is 98%. HEAD is normocephalic. CHEST has fair air entry, decreased at the bases. CVS - S1, S2 positive. Regular rhythm. DISCHARGE INSTRUCTIONS 1. The patient will be discharged home in stable condition. 2. Follow up with primary care provider in one week. 3. CBC/BMP to be done in one week. 4. Follow up with Dr. Ureña in eight weeks as scheduled. 5. Cardiac rehab as per Dr. Ureña. 6. Patient has been advised to check blood sugar at home three times a day. 7. Diet counseling done for diabetes. Dictated by... Moira Rose/debora Unit #: [id number] #: [id number] Patient: DAYAMI DELONG TD: 09/30/2016 11:42 JOB #: [id number] DISCHARGE SUMMARY Page 1 of 1 X Yesy Guzman MD X DISCHARGE SUMMARY
--- NOTE | ~2016-09-24 | EKG ---
PATIENT: CLEMENT RODRIGEZ UNIT #: [id number] Ventricular Rate: 57 BPM Atrial Rate: 57 BPM P-R Interval: 194 ms QRS Duration: 94 ms Q-T Interval: 432 ms QTC Calculation(Bezet): 420 ms P [place]: 45 degrees Calculated R [place]: -25 degrees Calculated T [place]: 163 degrees Diagnosis Line: Sinus bradycardia Diagnosis Line: T wave abnormality, consider anterolateral Diagnosis Line: ischemia Diagnosis Line: Abnormal ECG Diagnosis Line: When compared with ECG of 28-SEP-2016 13:30, Diagnosis Line: No significant change was found Diagnosis Line: Confirmed by RAHAT BEAUCHAMP MD ([id number]) on Diagnosis Line: 09/29/2016 12:19:06 PM INTERPRETING MD: JESSEE
--- NOTE | ~2016-09-24 | CO ---
Unit #: [id number] #: [id number] Patient: CLEMENT RODRIGEZ [id number] [address] [place], [place] [address] [id number] I MR#: [id number] NAME: CLEMENT RODRIGEZ. ROOM: [facility] Age: 46 Sex: F Admission Date: 09/25/2016 : 1970 Attending Physician: Yesy Guzman M.D. Primary Care Physician: Shady Diaz M.D. Consultation Date: 09/25/2016 CONSULTATION REPORT REASON FOR CONSULT ICU management. CHIEF COMPLAINT Shortness of breath, currently on the ventilator. HISTORY OF PRESENT ILLNESS This is a 46-year-old female with past medical history significant for diabetes, Crohn disease, coronary artery disease, COPD, anemia, hypertension and bipolar disorder who presented to the emergency room via EMS after she called them for shortness of breath. Per mother, who I called on the phone, the patient was at her baseline yesterday, and all of the sudden she started feeling sick to her stomach and then she started vomiting badly. Then, she called EMS because she was unable to breathe. The family thinks she aspirated some of her vomitus. There was no reported fever, chills, night sweats, cough, sore throat, chest pain or diarrhea. The patient is following with a customer liaison for some foot problems, but there is nothing acute or new. The patient was intubated in the field for airway protection. She is currently on the vent and heavily sedated. She is not following any commands. PAST MEDICAL HISTORY 1. Diabetes. 2. Crohn disease. 3. Coronary artery disease. 4. COPD. 5. Chronic anemia. 6. Hypertension. 7. GERD. 8. Bipolar disorder. 9. TIA. SOCIAL HISTORY The patient is a smoker but, per mom, no history of alcohol or drug abuse. PAST SURGICAL HISTORY 1. Hysterectomy. 2. Appendectomy. 3. Neck fusion. 4. Coronary artery stent placement. Unit #: [id number] #: [id number] Patient: CLEEMNT RODRIGEZ FAMILY HISTORY Diabetes and hypertension. HOME MEDICATIONS Unavailable at this point. ALLERGIES Penicillin, morphine, clindamycin, Neurontin, hydromorphone. REVIEW OF SYSTEMS Unable to obtain. PHYSICAL EXAMINATION GENERAL: The patient is heavily sedated on the vent. VITAL SIGNS: Blood pressure 126/67, respiratory rate 16, O2 saturation 98% the vent. HEENT: Atraumatic, normocephalic. PERRLA, EOMI. NECK: Supple. No JVD. No lymphadenopathy. CHEST: Clear to auscultation bilaterally. HEART: S1, S2. No murmur, gallops or rubs. ABDOMEN: Soft, nontender. Bowel sounds positive. No hepatosplenomegaly. EXTREMITIES: No edema or cyanosis. SKIN: No rashes. AUTOMOTIVE BRAKE TECHNICIAN: Heavily sedated, but she is moving extremities to painful stimuli. DIAGNOSTIC STUDIES LABS: Blood gas - pH 7.40, pO2 of 348. Creatinine 1, chloride 95. White blood count 14.5, hemoglobin 14.8. IMAGING: CT chest is consistent with left-sided aspiration pneumonia. ASSESSMENT 1. Acute hypoxic respiratory failure. 2. Left lower lobe aspiration pneumonia. 3. Nausea and vomiting. 4. Diabetes. 5. Hypertension. 6. Coronary artery disease. 7. Hyponatremia. PLAN 1. The patient is critical. Will continue vent support with spontaneous breathing trial daily. 2. Will proceed with a bronchoscopy for both diagnostic and therapeutic purposes. 3. The patient is allergic to penicillin and clindamycin, so will go with aztreonam and Flagyl for aspiration pneumonia. 4. Bronchodilator and mucolytics. 5. Will start tube feedings if not extubated today. 6. IV hydration. 7. DVT/GI prophylaxis. NOTE: Critical care time spent on this patient was 33 minutes. Unit #: [id number] #: [id number] Patient: CLEMENT RODRIGEZ Dictated by... Moira Klein TD: 09/25/2016 14:03 JOB #: [id number] CONSULTATION REPORT Page 1 of 1 X SALAZAR GOODEN MD CONSULTATION REPORT
--- NOTE | ~2016-09-24 | CT2 ---
[facility] A Service of [facility] RADIOLOGY TEXT RESULTS PATIENT: CLEMENT RODRIGEZ LOCATION: [facility] 568-01 : [birth year] UNIT #: [id number] AGE: [address]: Yesy Guzman MD SEX: F ORDER DR: [id number] [facility] [address]. [place], [place] [address] [id number] I MR#: [id number] Acc #: [id number] NAME: CLEMENT RODRIGEZ. : 1970 SEX: F STUDY DATE/TIME: 09/25/2016 01:24 UNIT: [facility] ROOM: [facility] STUDY DESCRIPTION: CT Abd and Pelv W Cont Attending Physician: Yesy Guzman M.D. Ordering Physician: Lenore Hauser M.D. Primary Care Physician: Shady Diaz M.D. MEDICAL IMAGING REPORT This report is preliminary unless electronic signature is present EXAM Abdomen and pelvis CT, 09/25 at 01:24 INDICATION Vomiting blood today. Feels like choking. Shortness of air, chest pain and abdominal pain. TECHNIQUE Axial images were obtained through the abdomen and pelvis following IV contrast administration. Multiplanar reformats were obtained. This CT exam was performed with one or more of the following radiation dose reduction techniques: automatic exposure control, adjustment of mA and/or kV according to patient size, and iterative reconstruction. COMPARISON 11/16/2015 FINDINGS ABDOMEN: For a description of findings in the lung bases, see the chest CT report dictated separately. Gallbladder is normal. There is no biliary obstruction. Solid organs are normal. No free fluid or adenopathy is seen. Unopacified GI tract is normal. There is some atherosclerotic disease in the aorta. PELVIS: The appendix is surgically absent. Uterus is surgically absent as well. Unopacified GI tract grossly normal. Cobos catheter is present in the urinary bladder. No free fluid. IMPRESSION 1. No acute findings in the abdomen or pelvis. 2. Appendectomy. Otherwise grossly normal unopacified GI tract. [facility] A Service of [facility] RADIOLOGY TEXT RESULTS PATIENT: CLEMENT RODRIGEZ LOCATION: [facility] 568-01 : [birth year] UNIT #: [id number] AGE: [address]: Yesy Guzman MD SEX: F ORDER DR: 3. Hysterectomy. 4. No free fluid or free air. 5. Normal nonobstructed kidneys. Dictated by... Rishi Echavarria Jr., M.D. THIS IS AN ELECTRONICALLY VERIFIED REPORT Rishi Echavarria Jr., M.D. at 09/28/2016 5:51 AM [place] TD: 09/25/2016 10:47 JOB #: [id number] MEDICAL IMAGING REPORT Page 1 of 1 COPY
--- NOTE | ~2016-09-24 | EKG ---
PATIENT: CLEMENT RODRIGEZ UNIT #: [id number] Ventricular Rate: 105 BPM Atrial Rate: 105 BPM P-R Interval: 182 ms QRS Duration: 92 ms Q-T Interval: 364 ms QTC Calculation(Bezet): 481 ms P [place]: 60 degrees Calculated R [place]: -46 degrees Calculated T [place]: 48 degrees Diagnosis Line: Sinus tachycardia Diagnosis Line: Left anterior fascicular block Diagnosis Line: Septal infarct , age undetermined Diagnosis Line: Abnormal ECG Diagnosis Line: When compared with ECG of 15-FEB-2016 17:30, Diagnosis Line: No significant change was found Diagnosis Line: Confirmed by LUIS BRADLEY MD ([id number]) on 09/25/2016 Diagnosis Line: 4:55:22 PM INTERPRETING MD: KIRK KHANNA
[2016-09-24] MEDS ORDERED: ADVAIR 250-501 EAC1 INH (23:20)
[2016-09-24 23:21] LABS: ARTERIAL BLD GAS O2 SATURATION 87.2 % (90.0-100.0); ARTERIAL BLOOD GAS CARBOXY HB 10.6 %sat (0.0-9.0); ARTERIAL BLOOD GAS MET HB 0.8 %sat (0.0-2.0); ARTERIAL BLOOD GAS PCO2 34.8 mmHg (35.0-45.0); ARTERIAL BLOOD GAS PO2 93.3 mmHg (80.0-100); ARTERIAL BLOOD GAS pH 7.465 (7.350-7.450)
[2016-09-24] MEDS ORDERED: ASPIRIN81 M2 PO (23:21)
[2016-09-24] MEDS ORDERED: ALPRAZOLAM1 MG PO (23:21)
[2016-09-24] MEDS ORDERED: ALBUTEROL 0.5ML INH (23:21)
[2016-09-24] MEDS ORDERED: COMBIVENT RESPIM4 GM INH (23:21)
[2016-09-24 23:22] LABS: ARTERIAL BLOOD GAS ALLEN TEST NORMAL; ARTERIAL BLOOD GAS ART SITE LEFT RADIAL; ARTERIAL BLOOD GAS DELIVERY RA; ARTERIAL DRAW? YES
[2016-09-24] MEDS ORDERED: CARBAMAZEPINE200 M3 PO (23:22)
[2016-09-24] MEDS ORDERED: UCERIS9 MG PO (23:22)
[2016-09-24] MEDS ORDERED: CIMZIA400 MG PO (23:23)
[2016-09-24] MEDS ORDERED: COREG6.25 MG PO (23:23)
[2016-09-24] MEDS ORDERED: DEXILANT60 MG PO (23:24)
[2016-09-24] MEDS ORDERED: CRESTOR40 MG PO (23:24)
[2016-09-24] MEDS ORDERED: HUMALOG100 UNIT/1 SUBQ (23:24)
[2016-09-24] MEDS ORDERED: DILTIAZEM 24HR120 M1 PO (23:24)
[2016-09-24] MEDS ORDERED: HUMALOG100 UNIT/1 (23:25)
[2016-09-24] MEDS ORDERED: HYDROCODON-ACE1 EAC5 PO (23:25)
[2016-09-24] MEDS ORDERED: COZAAR100 MG PO (23:26)
[2016-09-24] MEDS ORDERED: IMDUR-ER30 M1 PO (23:26)
[2016-09-24] MEDS ORDERED: ANTIVERT PO (23:26)
[2016-09-24] MEDS ORDERED: LEVEMIR SUBQ (23:26)
[2016-09-24] MEDS ORDERED: GLUCOPHAGE XR750 MG PO (23:27)
[2016-09-24] MEDS ORDERED: MIRALAX17 GM PO (23:27)
[2016-09-24] MEDS ORDERED: MULTI VITAMIN1 EACH PO (23:27)
[2016-09-24] MEDS ORDERED: NITROSTAT0.4 MG SL (23:28)
[2016-09-24] MEDS ORDERED: JANUVIA PO (23:28)
[2016-09-24] MEDS ORDERED: VITAMIN D250000 UNIT PO (23:28)
[2016-09-24 23:59] LABS: BASOPHIL# 0.1 X10e3 (0-0.3); BASOPHIL% 0.5 % (0-2.5); EOSINOPHIL# 0.1 X10e3 (0-0.7); EOSINOPHIL% 0.9 % (0.0-7.0); HEMATOCRIT 45.1 % (35.0-45.0); HEMOGLOBIN 14.8 gm/dL (12.0-16.0); LYMPHOCYTE# 6.2 X10e3 (1.0-3.5); LYMPHOCYTE% 42.4 % (17.0-45.0); MEAN CELL VOLUME 87.4 FL (83-96); MEAN CORPUSCULAR HEMOGLOBIN 28.6 PG (28-34); MEAN CORPUSCULAR HGB CONC 32.7 g/dL (30-36); MEAN PLATELET VOLUME 8.9 FL (6.5-11.5); MONOCYTE# 0.7 X10e3 (0-1.0); MONOCYTE% 5.1 % (3.0-12.0); NEUTROPHIL# 7.4 X10e3 (1.5-7.1); NEUTROPHIL% 51.1 % (40-75); PLATELET COUNT 268 X10e3 (140-420); RED BLOOD COUNT 5.16 X10e (3.90-5.30); RED CELL DISTRIBUTION WIDTH 14.4 % (11.0-15.5); WHITE BLOOD COUNT 14.5 X10e3 (4.0-10.5)
[2016-09-24 23:59] LABS: URINE SOURCE CATH
[2016-09-25 00:05] LABS: ARTERIAL BLOOD GAS CARBOXY HB 7.9 %sat (0.0-9.0); ARTERIAL BLOOD GAS HCO3 28.1 mmol/L; ARTERIAL BLOOD GAS MET HB 0.9 %sat (0.0-2.0); ARTERIAL BLOOD GAS PCO2 46.2 mmHg (35.0-45.0); ARTERIAL BLOOD GAS pH 7.393 (7.350-7.450)
[2016-09-25 00:07] LABS: ARTERIAL BLOOD GAS ALLEN TEST NORMAL; ARTERIAL BLOOD GAS ART SITE RIGHT RADIAL; ARTERIAL BLOOD GAS DELIVERY VENT; ARTERIAL BLOOD GAS PO2 67.3 mmHg (80.0-100); ARTERIAL BLOOD GAS VENT MODE AC; ARTERIAL DRAW? YES
[2016-09-25 00:13] LABS: URINE APPEARANCE CLEAR; URINE BILIRUBIN NEG (NEG); URINE BLOOD NEG (NEG); URINE COLOR YELLOW; URINE GLUCOSE >1000 MG/DL (NEG); URINE KETONE NEG (NEG); URINE LEUKOCYTE ESTERASE NEG (NEG); URINE NITRATE NEG (NEG); URINE PH 6.5 (5-8); URINE PROTEIN 1+ (NEG); URINE SPECIFIC GRAVITY 1.038 (1.003-1.035); URINE UROBILINOGEN 0.2 MG/DL (NEG)
[2016-09-25 00:15] LABS: URBCS1 AUWI 0-2 /[HPF] (0-2); URINE BACTERIA AUWI NEG (NEGATIVE); URINE SQUAMOUS EPITHELIAL CELL NONE SEEN /[HPF]; UWBCS1 AUWI 0-2 (0-5)
[2016-09-25 00:16] LABS: INR 0.9; PARTIAL THROMBOPLASTIN TIME 23.5 SECONDS (23.5-31.3); PROTHROMBIN TIME (PATIENT) 10.1 SECONDS (10.0-11.7)
[2016-09-25 00:23] LABS: CULTURE INDICATED? NO
[2016-09-25 00:23] LABS: AMPHETAMINE NEG (NEG); BARBITURATES NEG (NEG); BENZODIAZEPINES NEG (NEG); COCAINE NEG (NEG); MARIJUANA NEG (NEG); OPIATES NEG (NEG); TRICYCLIC ANTIDEPRESSANTS NEG (NEG); U METHADONE NEG (NEG)
[2016-09-25 00:28] LABS: POC - CKMB <1.0 ng/mL (0.0-7.9); POC - TROPONIN <0.05 ng/mL (<=0.05)
[2016-09-25 00:32] LABS: ALBUMIN SERUM 4.2 g/dL (3.5-5.0); ALKALINE PHOSPHATASE 82 U/L (32-92); ALT (SGPT) 14 U/L (10-40); AST (SGOT) 16 U/L (10-42); BETA HYDROXYBUTYRATE 0.13 MMOL/L (0.02-0.27); BILIRUBIN, DIRECT 0.2 mg/dL (0.0-0.2); BILIRUBIN,TOTAL 0.2 mg/dL (0.2-2.0); BLOOD UREA NITROGEN 13 mg/dL (9-23); CALCIUM SERUM 9.4 mg/dL (8.4-10.2); CARBON DIOXIDE 23 mmol/L (22-31); CHLORIDE 95 mmol/L (100-111); GLOM FILT RATE Estimated 77.7 mL/min (>60); LIPASE 54 U/L (22-51); MAGNESIUM 1.9 mg/dL (1.6-3.0); PHOSPHOROUS 3.5 mg/dL (2.5-4.6); POTASSIUM 3.7 mmol/L (3.5-5.1); PROTEIN TOTAL SERUM 8.3 g/dL (6.0-8.3); SODIUM 132 mmol/L (135-145)
[2016-09-25 00:33] LABS: ALCOHOL BLOOD <5 mg/dL (0); GLUCOSE FASTING 598 mg/dL (70-110)
[2016-09-25 00:47] LABS: THYROID STIMULATING HORMONE 0.78 uIU/ml (0.34-5.60)
[2016-09-25 00:52] LABS: FREE T3 2.9 pg/mL (2.5-3.9)
[2016-09-25 00:53] LABS: FREE THYROXIN (T4) 0.99 ng/dL (0.58-1.64)
[2016-09-25 03:33] LABS: POC - CKMB 2.1 ng/mL (0.0-7.9); POC - TROPONIN 0.21 ng/mL (<=0.05)
[2016-09-25 04:26] LABS: ARTERIAL BLD GAS O2 SATURATION 97.9 % (90.0-100.0); ARTERIAL BLOOD GAS HCO3 27.2 mmol/L; ARTERIAL BLOOD GAS MET HB 1.1 %sat (0.0-2.0); ARTERIAL BLOOD GAS pH 7.409 (7.350-7.450)
[2016-09-25 04:27] LABS: ARTERIAL BLOOD GAS ALLEN TEST NORMAL; ARTERIAL BLOOD GAS ART SITE LEFT RADIAL; ARTERIAL BLOOD GAS DELIVERY VENT; ARTERIAL BLOOD GAS VENT MODE AC; ARTERIAL DRAW? YES
[2016-09-25 08:00] LABS: DIFF IND NO
[2016-09-25 21:28] LABS: PROTHROMBIN TIME (PATIENT) 10.9 SECONDS (10.0-11.7)
[2016-09-25 21:36] LABS: CK TOTAL 40 IU/L (26-140)
[2016-09-26 03:39] LABS: BASOPHIL% 0.3 % (0-2.5); EOSINOPHIL# 0.1 X10e3 (0-0.7); EOSINOPHIL% 0.7 % (0.0-7.0); HEMATOCRIT 34.5 % (35.0-45.0); LYMPHOCYTE# 4.1 X10e3 (1.0-3.5); LYMPHOCYTE% 34.6 % (17.0-45.0); MEAN CELL VOLUME 86.8 FL (83-96); MEAN CORPUSCULAR HEMOGLOBIN 28.3 PG (28-34); MEAN CORPUSCULAR HGB CONC 32.6 g/dL (30-36); MEAN PLATELET VOLUME 7.9 FL (6.5-11.5); MONOCYTE# 0.5 X10e3 (0-1.0); MONOCYTE% 4.6 % (3.0-12.0); NEUTROPHIL# 7.1 X10e3 (1.5-7.1); NEUTROPHIL% 59.8 % (40-75); PLATELET COUNT 195 X10e3 (140-420); RED BLOOD COUNT 3.98 X10e (3.90-5.30); RED CELL DISTRIBUTION WIDTH 14.9 % (11.0-15.5); WHITE BLOOD COUNT 11.8 X10e3 (4.0-10.5)
[2016-09-26 03:57] LABS: CK TOTAL 58 IU/L (26-140)
[2016-09-26 04:00] LABS: BUN/CREATININE RATIO 15.71; CALCIUM SERUM 8.1 mg/dL (8.4-10.2); CREATININE SERUM 0.7 mg/dL (0.6-1.4); GLOM FILT RATE Estimated 119.6 mL/min (>60); POTASSIUM 3.1 mmol/L (3.5-5.1)
[2016-09-26 04:06] LABS: DIFF IND NO; HEMOGLOBIN 11.2 gm/dL (12.0-16.0)
[2016-09-26 20:58] LABS: BILIRUBIN,TOTAL 0.2 mg/dL (0.2-2.0); BUN/CREATININE RATIO 14.44; CALCIUM SERUM 8.4 mg/dL (8.4-10.2); CREATININE SERUM 0.9 mg/dL (0.6-1.4); GLOM FILT RATE Estimated 88.3 mL/min (>60); MAGNESIUM 1.6 mg/dL (1.6-3.0); POTASSIUM 3.5 mmol/L (3.5-5.1); PROTEIN TOTAL SERUM 6.4 g/dL (6.0-8.3)
[2016-09-27 05:39] LABS: CALCIUM SERUM 8.3 mg/dL (8.4-10.2); GLOM FILT RATE Estimated 77.7 mL/min (>60); POTASSIUM 3.5 mmol/L (3.5-5.1)
[2016-09-28 06:25] LABS: HEMATOCRIT 30.4 % (35.0-45.0); HEMOGLOBIN 9.9 gm/dL (12.0-16.0); MEAN CELL VOLUME 87.5 FL (83-96); MEAN CORPUSCULAR HEMOGLOBIN 28.4 PG (28-34); MEAN CORPUSCULAR HGB CONC 32.5 g/dL (30-36); MEAN PLATELET VOLUME 8.3 FL (6.5-11.5); RED BLOOD COUNT 3.47 X10e (3.90-5.30); RED CELL DISTRIBUTION WIDTH 14.6 % (11.0-15.5); WHITE BLOOD COUNT 7.9 X10e3 (4.0-10.5)
[2016-09-28 06:43] LABS: PARTIAL THROMBOPLASTIN TIME 27.3 SECONDS (23.5-31.3); PROTHROMBIN TIME (PATIENT) 10.8 SECONDS (10.0-11.7)
[2016-09-28 06:49] LABS: BUN/CREATININE RATIO 22.22; CALCIUM SERUM 8.3 mg/dL (8.4-10.2); CREATININE SERUM 0.9 mg/dL (0.6-1.4); GLOM FILT RATE Estimated 88.3 mL/min (>60)
[2016-09-28 15:26] LABS: ARTERIAL BLOOD GAS ALLEN TEST NORMAL; ARTERIAL BLOOD GAS ART SITE RIGHT RADIAL; ARTERIAL BLOOD GAS CARBOXY HB 2.2 %sat (0.0-9.0); ARTERIAL BLOOD GAS DELIVERY VENT; ARTERIAL BLOOD GAS HCO3 27.6 mmol/L; ARTERIAL BLOOD GAS MET HB 1.4 %sat (0.0-2.0); ARTERIAL BLOOD GAS PCO2 43.5 mmHg (35.0-45.0); ARTERIAL BLOOD GAS VENT MODE A/C; ARTERIAL DRAW? YES
[2016-09-28 21:14] LABS: ANGIO %MB 2.5 % (0.0-4.0); ANGIO MB 1.1 ng/ml
[2016-09-29 05:33] LABS: HEMATOCRIT 28.6 % (35.0-45.0); HEMOGLOBIN 9.7 gm/dL (12.0-16.0); MEAN CELL VOLUME 87.1 FL (83-96); MEAN CORPUSCULAR HEMOGLOBIN 29.6 PG (28-34); MEAN CORPUSCULAR HGB CONC 33.9 g/dL (30-36); MEAN PLATELET VOLUME 8.4 FL (6.5-11.5); RED BLOOD COUNT 3.28 X10e (3.90-5.30); RED CELL DISTRIBUTION WIDTH 14.4 % (11.0-15.5); WHITE BLOOD COUNT 8.9 X10e3 (4.0-10.5)
[2016-09-29 06:58] LABS: ANGIO %MB 2.9 % (0.0-4.0); ANGIO MB 1.2 ng/ml
[2016-09-29 07:46] LABS: CALCIUM SERUM 8.3 mg/dL (8.4-10.2); CREATININE SERUM 0.6 mg/dL (0.6-1.4); GLOM FILT RATE Estimated 125.8 mL/min (>60); POTASSIUM 3.6 mmol/L (3.5-5.1)
[2016-09-29] MEDS ORDERED: ACETAMINOPHEN PO (12:47)
[2016-09-29] MEDS ORDERED: ALDACTONE25 MG PO (13:00)
[2016-09-29] MEDS ORDERED: LEVAQUIN750 MG PO (13:01)
[2016-09-29] MEDS ORDERED: CLOPIDOGREL75 MG PO (13:03)
[2016-09-30 09:14] LABS: MAGNESIUM 1.6 mg/dL (1.6-3.0); POTASSIUM 3.7 mmol/L (3.5-5.1)
[2016-09-30] MEDS ORDERED: LANSOPRAZOLE30 M2 PO (10:16)
== END 2016-09-30 14:58 | disposition home or self-care (01) | DRG 981 ==
LOC: CED 23:05 → CEDOF 09-25 04:40 → CED 09-25 04:50 → CEDOF 09-25 05:33 → CICCU3 09-25 05:39 → CEDOF 09-25 05:39 → CICCU3 09-25 05:39 → C5C 09-27 07:39
PROVIDERS: Emergency Medicine; Hospitalist; Internal Medicine; Internal Medicine Cardiovascular Disease; Internal Medicine Pulmonary Disease; Physician Assistant Medical
PROC: 0BBB8ZX Excision of Left Lower Lobe Bronchus, Via Natural or Artificial Opening Endoscopic, Diagnostic (ICD-10-PCS; principal; 2016-09-25)
PROC: 5A1935Z Respiratory Ventilation, Less than 24 Consecutive Hours (ICD-10-PCS; 2016-09-25)
PROC: 0BH17EZ Insertion of Endotracheal Airway into Trachea, Via Natural or Artificial Opening (ICD-10-PCS; 2016-09-25)
PROC: B246ZZZ Ultrasonography of Right and Left Heart (ICD-10-PCS; 2016-09-26)
PROC: 027034Z Dilation of Coronary Artery, One Artery with Drug-eluting Intraluminal Device, Percutaneous Approach (ICD-10-PCS; 2016-09-28)
PROC: 0DB78ZX Excision of Stomach, Pylorus, Via Natural or Artificial Opening Endoscopic, Diagnostic (ICD-10-PCS; 2016-09-30)
DX: J96.01 Acute respiratory failure with hypoxia (principal); I21.4 Non-ST elevation (NSTEMI) myocardial infarction; E11.00 Type 2 diabetes mellitus with hyperosmolarity without nonketotic hyperglycemic-hyperosmolar coma (NKHHC); J69.0 Pneumonitis due to inhalation of food and vomit; R13.10 Dysphagia, unspecified; E87.1 Hypo-osmolality and hyponatremia; J44.9 Chronic obstructive pulmonary disease, unspecified; T82.855A Stenosis of coronary artery stent, initial encounter; Z88.1 Allergy status to other antibiotic agents; Z88.0 Allergy status to penicillin; Z88.8 Allergy status to other drugs, medicaments and biological substances; I25.2 Old myocardial infarction; I10 Essential (primary) hypertension; E78.5 Hyperlipidemia, unspecified; F17.210 Nicotine dependence, cigarettes, uncomplicated; I25.10 Atherosclerotic heart disease of native coronary artery without angina pectoris; F31.9 Bipolar disorder, unspecified; Z90.710 Acquired absence of both cervix and uterus; Z79.82 Long term (current) use of aspirin; Z79.4 Long term (current) use of insulin; Z71.3 Dietary counseling and surveillance; Z91.14 Patient's other noncompliance with medication regimen; K21.9 Gastro-esophageal reflux disease without esophagitis; E87.6 Hypokalemia; K29.00 Acute gastritis without bleeding
CPT/HCPCS: 31500; 36415; 36600; 51702; 70491; 71010; 71260; 74177; 74230; 80048; 80053; 80061; 80076; 80307; 81003; 82010; 82550; 82553; 82803; 82947; 83036; 83605; 83690; 83735; 83880; 84100; 84132; 84439; 84443; 84481; 84484; 84703; 85025; 85027; 85347; 85610; 85730; 87040; 87070; 87077; 87102; 87106; 87107; 87116; 87205; 87206; 88108; 88305; 92526; 92611; 93005; 93306; 94002; 94003; 94640; 94760; 94761; 96365; 96366; 96368; 97163; 99152; 99153; 99291; 99292; C1725; C1769; C1874; C1887; C1894; C9113; G0480; G8978-GP; G8979-GP; G8980-GP; G8996-GN; G8997-GN; G8998-GN; J0153; J0692; J1170; J1644; J1650; J1815; J1885; J1940; J1956; J2250; J2270; J2405; J3010; J3260; J3370; J3475; Q9967

== ENCOUNTER → 2016-10-06 | Outpatient (CLI) | payer MEDICARE, OTHER ==
[~2016-10-06] MED LIST changes: +ACETAMINOPHEN PO; +ALDACTONE PO; +ALDACTONE25 MG PO; +ANTIVERT PO; +CARBAMAZEPINE200 M3 PO; +CIMZIA400 MG PO; +CLOPIDOGREL75 MG PO; +COMBIVENT RESPIM4 GM INH; +COZAAR PO; +CRESTOR PO; +ENTYVIO300 MG; +EQUETRO100 MG PO; +GLUCOPHAGE XR750 MG PO; +HUMALOG100 UNIT/1; +HUMALOG100 UNIT/1 SUBQ; +HUMALOG100 UNIT/2; +HYDROCODON-ACE1 EAC5 PO; +HYDROXYZINE HCL25 M1 PO; +IMDUR-ER30 M3 PO; +JANUVIA100 MG PO; +LANSOPRAZOLE30 M2 PO; +LEVAQUIN750 MG PO; +LISINOPRIL PO; +MULTIVITAMINS1 EAC3 PO; +NITROSTAT0.4 MG PO; +OXYCODONE-ACET1 EAC1 PO; +PATIENT'S PHARMACY; +PROVENTIL INH0.5 ML NEB; +VITAMIN D350000 UNIT PO; +VOLTAREN 0.1%2.5 M1 TOP
--- NOTE | ~2016-10-06 | US138 ---
[facility] A Service [facility] RADIOLOGY TEXT RESULTS PATIENT: CLEMENT RODRIGEZ LOCATION: [facility] : [birth year] UNIT #: [id number] AGE: [address]: Moses Ureña MD SEX: F ORDER DR: [id number] [facility] [address] [place], [place] [address] [id number] O MR#: [id number] Acc #: [id number] NAME: CLEMENT RODRIGEZ : 1970 SEX: F STUDY DATE/TIME: 10/06/2016 14:53 UNIT: [facility] ROOM: STUDY DESCRIPTION: US [employer] Attending Physician: Moses Ureña M.D. Ordering Physician: Moses Ureña M.D. Primary Care Physician: Shady Diaz M.D. MEDICAL IMAGING REPORT This report is preliminary unless electronic signature is present EXAM Right upper extremity arterial duplex HISTORY Recent cardiac catheterization via radial artery. Right wrist pain and swelling. FINDINGS The right radial artery was evaluated at the area of soreness and swelling. The radial artery appears to be widely patent throughout its course with diffuse atherosclerotic wall calcification but no stenoses are noted. Velocity within the radial artery is 48 cm/sec. Superficial to the radial artery is a complex fluid collection consistent with recent access and likely, hematoma. There is noted flow within the structure with a very flow velocity of 12 cm/sec but there is no obvious connection to the radial artery. IMPRESSION Widely patent right radial artery without stenosis or occlusion. There is hematoma likely overlying the radial artery with scant trickle flow as noted but no identified connection to the radial artery. There is no evidence of pseudoaneurysm. Dictated by... Rachel Mota M.D. THIS IS AN ELECTRONICALLY VERIFIED REPORT Rachel Mota M.D. at 10/08/2016 7:34 AM FPN/jaleesa [facility] A Service of [facility] RADIOLOGY TEXT RESULTS PATIENT: CLEMENT RODRIGEZ LOCATION: [facility] : [birth year] UNIT #: [id number] AGE: [address]: Moses Ureña MD SEX: F ORDER DR: TD: 10/06/2016 21:10 JOB #: [id number] MEDICAL IMAGING REPORT Page 1 of 1 COPY
== END | disposition home or self-care (01) ==
LOC: CGUS 14:27
DX: I72.9 Aneurysm of unspecified site (principal); R09.89 Other specified symptoms and signs involving the circulatory and respiratory systems
CPT/HCPCS: 93931

== ENCOUNTER 2016-10-20 13:53 | Inpatient (IN) | payer MEDICARE, OTHER ==
[~2016-10-20] VITALS: Ht 172.7 cm; Wt 83.8 kg
--- NOTE | ~2016-10-20 | CT72 ---
[facility] A Service of [facility] RADIOLOGY TEXT RESULTS PATIENT: CLEMENT RODRIGEZ LOCATION: [facility] 341-01 : [birth year] UNIT #: [id number] AGE: [address]: Yesy Guzman MD SEX: F ORDER DR: [id number] [facility] [address]. [place], [place] [address] [id number] I MR#: [id number] Acc #: [id number] NAME: CLEMENT RODRIGEZ. : 1970 SEX: F STUDY DATE/TIME: 10/20/2016 14:07 UNIT: A [facility] ROOM: [facility] STUDY DESCRIPTION: CT Head Wo Contrast Stroke Attending Physician: Yesy Guzman M.D. Referring Physician: Sánchez Rocha M.D. Ordering Physician: Morales Manuel M.D. Primary Care Physician: Shady Diaz M.D. MEDICAL IMAGING REPORT This report is preliminary unless electronic signature is present EXAMINATION Noncontrast CT head. DATE 10/20/2016 HISTORY Right facial droop and weakness which started at 10 a.m. today. Additional history of smoking, COPD. COMPARISON Noncontrast CT head, 01/18/2016. TECHNIQUE This CT exam was performed with one or more of the following radiation dose reduction techniques: automatic exposure control, adjustment of mA and/or kV according to patient size, and iterative reconstruction. FINDINGS [place]acheco matter-white matter junction is preserved, and there is no CT evidence of acute or evolving infarct. No intracranial hemorrhage, mass lesion, mass effect, or midline shift is seen. Ventricular configuration is within normal limits. Air-fluid level is seen within the left maxillary sinus. Remainder of the paranasal sinuses are clear. Mastoid air cells are clear. No acute displaced calvarial fracture is identified. IMPRESSION 1. No acute intracranial findings. If the patient's stroke-like symptoms persist consider correlation to MRI brain stroke protocol. 2. Small air-fluid level is seen within the left maxillary sinus. Correlate for sinusitis symptoms. [facility] A Service of [facility] RADIOLOGY TEXT RESULTS PATIENT: CLEMENT RODRIGEZ LOCATION: [facility] 341-01 : [birth year] UNIT #: [id number] AGE: [address]: Yesy Guzman MD SEX: F ORDER DR: Dictated by... Marcie Collins M.D. THIS IS AN ELECTRONICALLY VERIFIED REPORT Marcie Collins M.D. at 10/23/2016 8:34 AM BEHZAD/suresh TD: 10/20/2016 23:44 JOB #: [id number] MEDICAL IMAGING REPORT Page 1 of 1 COPY
--- NOTE | ~2016-10-20 | MR18 ---
[facility] A Service of [facility] RADIOLOGY TEXT RESULTS PATIENT: CLEMENT RODRIGEZ LOCATION: [facility] 341-01 : [birth year] UNIT #: [id number] AGE: [address]: Yesy Guzman MD SEX: F ORDER DR: [id number] [facility] [address] [place], [place] [address] [id number] I MR#: [id number] Acc #: [id number] NAME: CLEMENT RODRIGEZ. : 1970 SEX: F STUDY DATE/TIME: 10/20/2016 16:38 UNIT: [address] ROOM: [facility] STUDY DESCRIPTION: MR Brain Wo Contrast Attending Physician: Yesy Guzman M.D. Referring Physician: Shady Diaz M.D. Ordering Physician: Luciano Hawkins M.D. Primary Care Physician: Shady Diaz M.D. MRI CENTER REPORT This report is preliminary unless electronic signature is present. EXAM MRI brain without contrast HISTORY Right facial droop and right side weakness today. Difficulty speaking. FINDINGS MRI brain was performed without contrast. There is no recent ischemia or infarct. No intracranial mass or edema. No focal atrophy, midline shift, ventricular dilatation, or extraaxial fluid collection. Small amount of fluid layering posteriorly in the left maxillary sinus. IMPRESSION 1. Normal MRI brain. 2. Small amount of fluid layering posteriorly in the left maxillary sinus. Dictated by... Steve Roth M.D. THIS IS AN ELECTRONICALLY VERIFIED REPORT Steve Roth M.D. at 10/21/2016 11:46 PM ADELAIDA/gege TD: 10/21/2016 09:02 JOB #: [id number] MRI CENTER REPORT Page 1 of 1 COPY
--- NOTE | ~2016-10-20 | CT17 ---
[facility] A Service of [facility] & [facility] RADIOLOGY TEXT RESULTS PATIENT: CLEMENT RODRIGEZ LOCATION: [facility] 341- : [birth year] UNIT #: [id number] AGE: [address]: Yesy Guzman MD SEX: F ORDER DR: [id number] [facility] [address] [place], [place] [address] [id number] I MR#: [id number] Acc #: [id number] NAME: CLEMENT RODRIGEZ. : 1970 SEX: F STUDY DATE/TIME: 10/20/2016 17:54 UNIT: [address] ROOM: [facility] STUDY DESCRIPTION: CT Angio Head Attending Physician: Yesy Guzman M.D. Referring Physician: Shady Diaz M.D. Ordering Physician: Lucinao Hawkins M.D. Primary Care Physician: Shady Diaz M.D. MEDICAL IMAGING REPORT This report is preliminary unless electronic signature is present EXAM CT angiogram neck with IV contrast. HISTORY Right side weakness. Right facial droop. Slurred speech. Onset today. TECHNIQUE IV contrasted CT angiogram head neck was performed with 3-D reconstructions. This CT exam was performed with one or more of the following radiation dose reduction techniques: automatic exposure control, adjustment of mA and/or kV according to patient size, and iterative reconstruction. FINDINGS CT angiogram neck. Normal caliber common carotid arteries are widely patent bilaterally. There is minimal partly calcified atherosclerotic plaque in the left carotid bulb and in the proximal internal carotid arteries bilaterally, but no hemodynamically significant carotid artery stenosis by NASCET criteria. Both vertebral arteries are widely patent, dominant on the left and relatively hypoplastic on the right. Multilevel lower cervical spinal fusion. CT angiogram brain. The intracranial internal carotid arteries and intracranial vertebral arteries and the basilar artery are widely patent. The anterior cerebral, middle cerebral and posterior cerebral arteries are also widely patent. No major vessel occlusion or high-grade stenosis. Patent anterior communicating artery. No aneurysm or vascular malformation is identified. Small amount of fluid layering the posterior left maxillary sinus. IMPRESSION 1. No hemodynamically significant cervical carotid artery stenosis by STS. [facility] A Service of [facility] & [facility] RADIOLOGY TEXT RESULTS PATIENT: CLEMENT RODRIGEZ LOCATION: A 341-01 : [birth year] UNIT #: [id number] AGE: [address]: Yesy Guzman MD SEX: F ORDER DR: CRISTIANE criteria. There is only mild partly calcified atherosclerotic plaque in the proximal internal carotid arteries. 2. Unremarkable intracranial CT angiogram. No intracranial major vessel arterial stenosis or occlusion. Dictated by... Steve Roth M.D. THIS IS AN ELECTRONICALLY VERIFIED REPORT Steve Roth M.D. at 10/21/2016 11:46 PM ADELAIDA/jame TD: 10/21/2016 09:54 JOB #: [id number] MEDICAL IMAGING REPORT Page 1 of 1 COPY
--- NOTE | ~2016-10-20 | ER ---
Unit #: [id number] #: [id number] Patient: CLEMENT DELONG [id number] [address] [place], [place] [address] [id number] E MR#: [id number] NAME: CLEMENT DELONG ROOM: Sex: F Age: 46 : 1970 Service Date: 10/20/2016 Attending Physician: Luciano Hawkins M.D. Primary Care Physician: Shady Diaz M.D. EMERGENCY DEPT PHYSICIAN NOTE EMERGENCY DEPARTMENT NOTE Please see the written T sheet for the full details of the encounter. Ms. Delong is a 46-year-old woman with multiple past medical problems, including coronary artery disease, diabetes, hypertension and previous TIA. The patient stated that she noticed right arm and right leg weakness, as well as right-sided facial droop that came on acutely at 10 a.m. this morning. She eventually did call EMS who immediately responded and transported the patient to the emergency department. They arrived at 2 p.m. On exam, patient did demonstrate right-sided facial weakness and right arm and right leg weakness. The patient was made a code stroke and transported immediately to CT scan. While in CT scan, the patient was evaluated by Dr. Box. At [address] Box about the decision to give TPA. Dr. Box related that the patient would be within the 4.5 hour window ending at 1430. However, the patient was at increased risk for bleed with a blood sugar greater than 400 and an elevated blood pressure. Thus, Dr. Box recommended that TPA be given only if the patient's blood sugar could be lowered below 400 and the blood pressure was under better control by the 4.5 hour time limit. Patient was immediately brought back from CT scan, and a liter of normal saline, 10 units of regular insulin IV and 10 mg of IV labetalol were ordered to try and accomplish these goals. However, at 1430 the patient's sugar was 415 by Accu-Cheks, and the pressure remained elevated, although under better control. As the criteria were not met and the patient was at significant risk for intracranial hemorrhage, the TPA was withheld. This decision was relayed to Dr. Box at 1430, who agreed that the patient would be too high risk to receive TPA and that it should not be given. The patient will continue her stroke workup by obtaining MRI and being admitted to the hospital. Dictated by... Moira Oshea/kandy TD: 10/20/2016 16:26 JOB #: [id number] Unit #: [id number] #: [id number] Patient: CLEMENT DELONG EMERGENCY DEPT PHYSICIAN NOTE Page 1 of 1 X Luciano Hawkins MD X EMERGENCY DEPARTMENT REPORT
--- NOTE | ~2016-10-20 | CO ---
Unit #: [id number] #: [id number] Patient: CLEMENT RODRIGEZ [id number] [facility] [address]. [place], [place] [address] [id number] Néstor MR#: [id number] NAME: CLEMENT RODRIGEZ. ROOM: 341 Age: 46 Sex: F Admission Date: 10/20/2016 : 1970 Attending Physician: Yesy Guzman M.D. Primary Care Physician: Shady Diaz M.D. Consultation Date: 10/21/2016 CONSULTATION REPORT PRIMARY CARE PHYSICIAN Shady Diaz M.D. REASON FOR CONSULTATION Right-sided weakness. PATIENT IDENTIFICATION This is a 46-year-old right-handed female, who was evaluated in room 341 at [facility]. SOURCE OF INFORMATION The patient and ER records. PROBLEM LIST The patient came yesterday via EMS and there was a concern about right-sided weakness. Code stroke was called and I got on the phone with the ER physician and malt house operator and the biggest concern we had was that the patient reported that it was 10 o'clock that she had the symptoms. She was confused. Her blood glucose was 459. I was told the blood pressure at one time was 220 and we were about 4 hours 15 minutes out. Please see further details below. 1. Coronary artery disease, status post RCA stent. 2. Diabetes. 3. Dyslipidemia. 4. Hypertension. 5. Crohn disease. 6. COPD and continued smoking. 7. Bipolar disorder. 8. History of TIA. 9. GERD. 10. Dysphagia, vitamin D deficiency. 11. Hysterectomy. 12. Appendectomy. 13. Colonoscopy. 14. Fusion in 2009. 15. Coronary stents. HISTORY OF PRESENT ILLNESS This is a 46-year-old female, who actually came yesterday and an immediately code stroke was called because there was concern about right-sided weakness. There was right face and right-sided weakness and dysarthria, but her glucose was persistently 450 and above. Her blood pressure was elevated so I was concerned that this may be a poor prognostic sign and I wanted the blood pressure to be dropped and also the Unit #: [id number] #: [id number] Patient: CLEMENT RODRIGEZ patient was confused and there was nobody to corroborate the history to see when the timing was. Her CT was okay, then I send her for CTA by 2:30 p.m., which will be the time that she was at the end of the window. Her blood glucose did not improve and I was concerned, we decided not to give her tPA and go for CTA. The CTA was okay, then I requested an MRI. Incidentally, the MRI was also okay and she continues to have right-sided symptoms more proximal right-sided symptom, decreased sensation, so that raised the concern that this was probably not an acute neurologic event and she would not have been a tPA or interventional candidate anyway and with that glucoses it increases risk factors for complication. Now when she is more awake, she still thinks its 10/20/2016, but she can tell me that she woke up at 10 o'clock and she noticed it not that she was fine and noticed it, again that helps with making the decision and also looking at her prior history and hemoglobin A1c of 13.1, LDL of 174. It looks like she is really noncompliant. She is on aspirin. She is more awake, but she still is a bit weak on the right side and she says decreased sensation on the right side of the face. She has had cervical spine problem with the face. I doubt that this is going to be just a cervical spine problem. No falls or injuries. PAST MEDICAL HISTORY As discussed above. PAST SURGICAL HISTORY As discussed above. ALLERGIES 1. Clindamycin. 2. Penicillin. 3. Neurontin. 4. Dilantin. HOME MEDICATIONS Oxycodone 10/325 one p.o. t.i.d., Phenergan, Nitrostat, multivitamin, MiraLax, Levemir, Zestril, Cozaar, lansoprazole, meclizine, Advair, Combivent, Proventil, aspirin 81 mg, Dexilant, Humalog, hydroxyzine, Imdur ER, Januvia, Entocort, Equetro, Coreg, Entyvio, Parafon Forte DSC, Plavix, Voltaren, Aldactone, vitamin D, Crestor, diltiazem. FAMILY HISTORY Diabetes and hypertension. SOCIAL HISTORY The patient still smokes about half a pack a day. Denies use of alcohol or drugs. REVIEW OF SYSTEMS Mostly right-sided symptoms. PHYSICAL EXAMINATION VITAL SIGNS: Temperature 98.3, pulse 63, respirations 16, blood pressure 119/78, pain was 4 to 5/10, O2 saturations on 96% to 100%, weight of 176 pounds. BMI was 26. NEUROLOGIC: The patient is awake. She is alert. She is oriented. She think it is 10/20/2016 instead 10/21/2016. She can name. She can follow Unit #: [id number] #: [id number] Patient: CLEMENT RODRIGEZ commands. No right/left confusion. No finger agnosia. Cranial examination demonstrates full holland of vision to confrontation. Eye movements are conjugate. I did not see any ptosis. I did not see any nystagmus. Extraocular movements were intact. Sensation on the face and scalp were normal. Strength of muscles of facial expression were normal. Hearing seemed to be intact bilaterally. Tongue was midline. Uvula was midline. Palate elevation was normal. Head turning and shoulder shrugs were otherwise unremarkable. She does report some decreased sensation and splitting midline all over the body including the face. She also reported right-sided facial weakness which is what I am not seeing. On motor examination, she has normal bulk and tone. She says she cannot move the right shoulder distally, she is at least 4-, left side is 5-, but she is not really moving proximal right shoulder and right hip. Sensory examination diffuse on the right side. I could not get any reflexes. Toes are equivocal. Gait was not evaluated. Coordination was normal on the left side, she could not move on the right side. I did not see any extinction. DIAGNOSTIC STUDIES LABORATORY RESULTS: Reviewed. IMAGING STUDIES: Reviewed. IMPRESSION 1. This is a very interesting and complicated 46-year-old female, who presented initially and told everybody the symptoms started at 10 o'clock and that started a code stroke and now I found out that she woke up with it, so she was not a tPA or interventional candidate. 2. She does not have an acute stroke. 3. She does have symptoms, but no signs, so this is not a transient ischemic attack. 4. Considering her prior history, I will continue the aspirin and Plavix. The only thing I would recommend to consider checking her cervical spine MRI, because she does have cervical spine studies done if anything is abnormal, then she may need to have Spine or Neurosurgery evaluation, but neurologically with normal CT, normal MRI, and normal CTA. I would observe and do nothing else. Call me for any other questions, issues, or concerns. My advice would be compliant with smoking cessation and other evaluation as per primary care physician, because they have not seen the patient yet, so I will await for their evaluation to be done. Dictated by... Moira Navarrete/rishabh TD: 10/21/2016 12:46 JOB #: [id number] Unit #: [id number] #: [id number] Patient: CLEMENT RODRIGEZ CONSULTATION REPORT Page 1 of 1 X Karly Box MD X CONSULTATION REPORT
--- NOTE | ~2016-10-20 | EKG ---
PATIENT: CLEMENT RODRIGEZ UNIT #: [id number] Ventricular Rate: 76 BPM Atrial Rate: 76 BPM P-R Interval: 154 ms QRS Duration: 92 ms Q-T Interval: 394 ms QTC Calculation(Bezet): 443 ms P [place]: 48 degrees Calculated R [place]: -22 degrees Calculated T [place]: 91 degrees Diagnosis Line: Normal sinus rhythm Diagnosis Line: T wave abnormality, consider lateral ischemia Diagnosis Line: Abnormal ECG Diagnosis Line: When compared with ECG of 29-SEP-2016 05:50, Diagnosis Line: T wave inversion less evident in Anterior leads Diagnosis Line: Confirmed by WILMER VALLADARES MD ([id number]) on Diagnosis Line: 10/20/2016 4:45:22 PM INTERPRETING MD: JACQUELYN KHANNA
--- NOTE | ~2016-10-20 | DS ---
Unit #: [id number] #: [id number] Patient: DAYAMI DELONG [id number] [address] [address] [id number] I MR#: [id number] NAME: DAYAMI DELONG ROOM: 341 Age: 46 Sex: F Admission Date: 10/20/2016 : 1970 Discharge Date: 10/25/2016 Attending Physician: Yesy Guzman M.D. Referring Physician: Shady Diaz M.D. Primary Care Physician: Shady Diaz M.D. DISCHARGE SUMMARY DATE OF TRANSFER TO [facility] 10/25/2016 FINAL DIAGNOSES 1. Right upper extremity weakness. 2. Right lower extremity weakness. 3. MRI of the cervical spine shows moderate diffuse disc bulging at C6-C7. Small left paracentral bony spur at C4-C5 and moderate broad based posterior finding were at C5-C6. These changes causing multilevel mild central canal narrowing. Anterior fusion has been noted at C4-C6. 4. History of TIA in the past. 5. Accelerate hypertension, which is improved. 6. Diabetes mellitus type 2. 7. History of coronary artery disease. 8. History of Crohn disease. 9. History of bipolar disorder. DISCHARGE MEDICATIONS 1. Nitrostat 0.4 mg p.r.n. for chest pain. 2. Imdur ER 30 mg q.day. 3. Protonix 40 mg q.day. 4. Spironolactone 25 mg daily. 5. Plavix 75 mg q.day. 6. Percocet 10/325 one tablet 4 times a day p.r.n. 7. Aspirin 81 mg q.day. 8. Multivitamin q.day. 9. Crestor 40 mg q.h.s. 10. Cozaar 100 mg q.day. 11. Levemir 15 units subcu b.i.d. 12. NovoLog 15 units subcu 3 times a day with meals. 13. MiraLAX 17 g daily. 14. Cardizem CD 120 mg twice a day. 15. Coreg 6.25 mg twice a day. 16. Hydroxyzine 25 mg q.h.s. p.r.n. 17. Phenergan 25 mg q.day p.r.n. 18. Meclizine 25 mg p.o. 3 times a day p.r.n. 19. Januvia 100 mg q.day. 20. Tegretol 200 mg q.day. 21. Lovenox 40 mg subcu q.day. 22. Entocort 9 mg q.day. 23. Combivent nebulizer treatment q.i.d. p.r.n. ADMITTING PHYSICIAN Unit #: [id number] #: [id number] Patient: DAYAMI DELONG Golden Khalil M.D. DISCHARGE PHYSICIAN Yesy Guzman M.D. CONSULTATION DURING HOSPITALIZATION Dr. Karly Box from neurology services; and Dr. Leticia Rudolph from endocrinology services. LAB WORKUP ON DISCHARGE Glucose is 368, magnesium 1.7. BMP shows sodium 137, potassium 4.0, chloride 106, BUN 11, creatinine 0.7, magnesium 1.7, WBC 9.5, hemoglobin 11.5, hematocrit 34.5, and platelet count of 172. Urine culture is no growth. SIGNIFICANT RADIOLOGICAL STUDIES DONE DURING HOSPITALIZATION 1. CT scan of the head without contrast, which showed no acute intracranial finding. 2. MRI of the brain without contrast shows normal MRI of the brain. 3. MRI of the cervical spine, findings are as above. HOSPITAL COURSE Ms. Dayami Delong is a 46-year-old -[place] female who is well known to use from multiple admissions. She has multiple medical problems, presented to emergency room with complaint of waking up with right-sided weakness and her systolic blood pressure was around 220. Patient was admitted to telemetry unit. Dr. Box was consulted. Extensive workup was done and acute CVA has been ruled out. Patient is on aspirin and Plavix and that needs to be continued. Cervical spine MRI was done. Patient has a significant finding. Patient will be transferred to [facility] as we do not have neurosurgery services here. I have discussed with Dr. Khalil. DISCHARGE INSTRUCTIONS 1. Patient is being discharged to [facility]. 2. Medication as per med rec. 3. Neurosurgery consult. ADMITTING PHYSICIAN AT [facility] Dr. Khalil. Dictated by... Yesy Guzman M.D. BHARATH/guille TD: 10/25/2016 12:07 JOB #: [id number] Unit #: [id number] #: [id number] Patient: DAYAMI DELONG DISCHARGE SUMMARY Page 1 of 1 X Yesy Guzman MD DISCHARGE SUMMARY
--- NOTE | ~2016-10-20 | MR32 ---
[facility] A Service of [facility] & [facility] RADIOLOGY TEXT RESULTS PATIENT: CLEMENT RODRIGEZ LOCATION: A 341-01 : [birth year] UNIT #: [id number] AGE: [address]: Yesy Guzman MD SEX: F ORDER DR: [id number] [facility] [address]. [place], [place] [address] [id number] I MR#: [id number] Acc #: [id number] NAME: CLEMENT RODRIGEZ. : 1970 SEX: F STUDY DATE/TIME: 10/22/2016 22:05 UNIT: [address] ROOM: [facility] STUDY DESCRIPTION: MR Cervical Wo Contrast Attending Physician: Yesy Guzman M.D. Referring Physician: Shady Diaz M.D. Ordering Physician: Karly Box M.D. Primary Care Physician: Shady Diaz M.D. MRI CENTER REPORT This report is preliminary unless electronic signature is present. EXAM Cervical spine without contrast. HISTORY Neck pain for 2 days. Numbness in right arm. FINDINGS MRI cervical spine was performed without contrast. The exam sensitivity is partly limited by patient motion. There is anterior fusion hardware from C4-C6. Evaluation of the cervical cord is limited by technique. No cervical cord enlargement. Small cervical cord lesions cannot be confidently excluded on the basis of this exam. At C2-C3, there is mild posterior degenerative disc bulging, but no focal disc protrusion. At C3-C4, there is [id number] posterior midline disc bulging, causing slight ventral impression on the central canal and on the ventral margin of the cervical cord, and causing mild central canal narrowing. At C4-C5, there is a small left paracentral marginal osteophyte, causing slight ventral impression on the central canal. At C5-C6, there is a moderate-sized broad-based marginal osteophyte, also contributing to mild central canal narrowing. At C6-C7, there is moderate diffuse disc bulging but no focal disc protrusion. Mild central canal narrowing. At C7-T1, there is no disc bulge or protrusion. IMPRESSION 1. Small posterior midline disc bulging at C2-C3 and C3-C4. STS. [facility] A Service of [facility] & [facility] RADIOLOGY TEXT RESULTS PATIENT: CLEMENT RODRIGEZ LOCATION: C3A 341-01 : [birth year] UNIT #: [id number] AGE: [address]: Yesy Guzman MD SEX: F ORDER DR: 2. Moderate diffuse disc bulging at C6-C7. 3. Small left paracentral bony spur at C4-C5 and moderate broad-based posterior bony spur at C5-C6. These changes cause multilevel mild central canal narrowing as detailed above. 4. No focal disc protrusion. Anterior fusion from C4-C6. 5. Limited evaluation of the cervical cord secondary to patient motion, but no cord enlargement or definite edema is identified. Dictated by... Steve Roth M.D. THIS IS AN ELECTRONICALLY VERIFIED REPORT Steve Roth M.D. at 10/23/2016 2:22 PM DFL/jame TD: 10/23/2016 09:29 JOB #: [id number] MRI CENTER REPORT Page 1 of 1 COPY
--- NOTE | ~2016-10-20 | HP ---
Unit #: [id number] #: [id number] Patient: CLEMENT DELONG [id number] [address] [address] [id number] I MR#: [id number] NAME: CLEMENT DELONG. ROOM: 341 Age: 46 Sex: F Admission Date: 10/20/2016 : 1970 Attending Physician: Yesy uGzman M.D. Referring Physician: Shady Diaz M.D. Primary Care Physician: Shady Diaz M.D. HISTORY AND PHYSICAL ADMISSION DIAGNOSES 1. Right sided weakness. 2. History of TIA in the past. 3. Accelerated hypertension. 4. Diabetes. 5. History of coronary disease. 6. Bipolar disorder. 7. History of Crohn's disease. HISTORY OF PRESENT ILLNESS Ms. Delong is a 46-year-old -[place] female well known to us secondary to prior admissions. She is the one with the past medical history of TIA, coronary artery disease, diabetes, Crohn's disease, COPD, hypertension, bipolar disorder who apparently presented to the emergency room with the complaints of waking up with the right side weakness. Apparently her systolic blood pressure was around 220. Patient tells me that she takes her blood pressure medications routinely at home. Denies any current headache, denies any dizziness, denies any syncope or presyncope, denies any chest pain, shortness of air, dyspnea, fever, chills, nausea, vomiting, diarrhea or abdominal pain. Her symptoms had been resolved by now. REVIEW OF SYSTEMS 10-point review of systems on this patient is basically negative except as above. PAST MEDICAL HISTORY Significant for: 1. History of coronary artery disease. 2. Insulin dependent diabetes. 3. Hypertension. 4. TIA. 5. COPD. 6. Coronary artery disease. 7. Bipolar disorder. PAST SURGICAL HISTORY Significant for: 1. Hysterectomy. 2. Appendectomy. 3. Neck fusion. 4. Cardiac cath with PCI and stent placement. MEDICATIONS Unit #: [id number] #: [id number] Patient: CLEMENT DELONG Current medications on this female include: 1. Levemir 30 units subcu b.i.d. 2. Sliding scale insulin. 3. Dulera 2 puffs inhaled b.i.d. 4. MiraLAX. 5. Meclizine. 6. Combivent. 7. Lipitor. 8. Cardizem. 9. Coreg. 10. Phenergan. 11. Percocet p.r.n. 12. Vistaril p.r.n. 13. Aspirin. 14. Morphine p.r.n. for pain. 15. Lovenox 40 subcu daily. 16. Plavix 75 mg daily. 17. Cozaar 100 mg daily. 18. Tegretol 200 mg daily. 19. Entocort daily. 20. Januvia 100 mg daily. 21. Imdur 30 mg daily. 22. Protonix 40 daily. 23. Aspirin 325 daily. ALLERGIES Penicillin, clindamycin and gabapentin. SOCIAL HISTORY No current history of tobacco, alcohol or illicit drugs. FAMILY HISTORY Significant for diabetes and hypertension. PHYSICAL EXAMINATION Patient is a 46-year-old female, in no acute distress. VITAL SIGNS: BP 114/72, currently heart rate 64, respirations 16, temperature 97.9. HEENT: Head is atraumatic. Pupils equal, round, reactive to light and accommodation. Extraocular muscles intact. Oropharynx clear. NECK: Supple. No masses, no JVD, no bruits. CHEST: Clear to auscultation bilaterally. CARDIOVASCULAR SYSTEM: S1, S2. No murmurs. ABDOMEN: Soft, nontender, nondistended. EXTREMITIES: Lower extremities without any cyanosis, clubbing or edema. NEUROLOGICAL: Patient grossly intact. No focal deficits. LABS AND DIAGNOSTICS IMAGING: CT head negative. MRI head negative. CT angio unremarkable. CT angio of the neck unremarkable. LABORATORY: Chemistry significant for blood glucose 497. Since then, it was treated and her most recent blood glucose 151. Unit #: [id number] #: [id number] Patient: CLEMENT DELONG PT, INR, PTT 10.3, 0.9 and 21.8. White count 7.2. H and H 13.3 and 39.5. Troponin less than 0.05. ASSESSMENT AND PLAN 1. Right sided weakness which has resolved. Status post negative workup, status post neurology evaluation. Continue current aspirin and Plavix. Continue statin. Will get the PT/OT eval. Likely discharge home in next day or so. 2. History of TIA in the past, as above. 3. Accelerated hypertension, currently stable. Continue current antihypertensive meds. 4. Diabetes. Her hyperglycemia most likely was secondary to holding the insulin since she was NPO pending the swallow eval. Dr. Rudolph to follow for tight blood glucose control. 5. History of coronary artery disease. Continue double antiplatelet therapy. Continue Coreg. 6. History of bipolar disorder, continue home meds. 7. History of Crohn's disease, currently stable. 8. GI and DVT prophylaxis, currently on the PPI and Lovenox. Dictated by Moira Martines/df TD: 10/22/2016 06:16 JOB #: [id number] HISTORY AND PHYSICAL Page 1 of 1 X Golden Khalil MD X HISTORY AND PHYSICAL
--- NOTE | ~2016-10-20 | CO ---
Unit #: [id number] #: [id number] Patient: CLEMENT RODRIGEZ [id number] [address] [place], [place] [address] [id number] I MR#: [id number] NAME: CLEMENT RODRIGEZ. ROOM: 341 Age: 46 Sex: F Admission Date: 10/20/2016 : 1970 Attending Physician: Yesy Guzman M.D. Primary Care Physician: Shady Diaz M.D. Consultation Date: 10/23/2016 CONSULTATION REPORT REASON FOR CONSULTATION Uncontrolled diabetes mellitus. HISTORY OF PRESENT ILLNESS This is a 46-year-old black female with history of multiple medical problems, who has been admitted with right-sided lower extremity weakness. She has known history of type 2 diabetes mellitus and blood sugars has been running high. I have been asked to see the patient for further management. PAST MEDICAL HISTORY Type 2 diabetes mellitus, uncontrolled; coronary artery disease; Crohn disease; COPD; history of TIA, hypertension; bipolar disorder. PAST SURGICAL HISTORY Hysterectomy, appendectomy, neck fusion, and coronary artery stent placement. MEDICATIONS Current medication list is reviewed, the patient is on 35 units subcutaneous daily on Levemir, and is on NovoLog 10 units each meal, cover with supplemental sliding scale medium dose, Januvia 100 mg daily. Other medication list, please see MAR. ALLERGIES Clindamycin, penicillin, gabapentin. SOCIAL HISTORY No alcohol, tobacco, or illicit drugs. FAMILY HISTORY Remarkable for diabetes and hypertension. REVIEW OF SYSTEMS A 12-point review of systems was completed and is unremarkable except as noted in HPI with right-sided lower extremity weakness. PHYSICAL EXAMINATION GENERAL: She is awake, alert, oriented to time, place, and person. She is comfortable, in no acute distress. VITAL SIGNS: Temperature is 98, pulse 66, respirations 18, blood pressure 129/86. HEENT: EOMI. Pupils equally reactive to light. NECK: Supple. No thyromegaly noted. Unit #: [id number] #: [id number] Patient: CLEMENT RODRIGEZ CHEST: Good air entry. CVS: Regular rhythm. No murmurs. ABDOMEN: Soft and nontender. Bowel sounds positive. EXTREMITIES: No edema noted. NEURO: She has a right-sided lower extremity weakness. DIAGNOSTIC STUDIES LABORATORY RESULTS: Reviewed. A1c is 13%. LDL is 174. ASSESSMENT 1. Type 2 diabetes mellitus, poorly controlled. 2. Hypertension. 3. History of transient ischemic attack. 4. Obesity. PLAN We will change the patient's Levemir to 15 units subcu b.i.d., NovoLog 10 units each meal. Continue consistent carb diet. Cover with supplemental insulin as needed. Accu-Cheks a.c. and h.s. Thanks again for consultation. Dictated by... Moira Dodge/rishabh TD: 10/23/2016 19:53 JOB #: [id number] CONSULTATION REPORT Page 1 of 1 X Leticia Rudolph MD X CONSULTATION REPORT
[~2016-10-20 13:53] MED LIST changes: -ALDACTONE PO; -COZAAR PO; -CRESTOR PO; -ENTYVIO300 MG; -EQUETRO100 MG PO; -HUMALOG100 UNIT/2; -HYDROXYZINE HCL25 M1 PO; -IMDUR-ER30 M3 PO; -JANUVIA100 MG PO; -LISINOPRIL PO; -MULTIVITAMINS1 EAC3 PO; -NITROSTAT0.4 MG PO; -OXYCODONE-ACET1 EAC1 PO; -PATIENT'S PHARMACY; -PROVENTIL INH0.5 ML NEB; -VITAMIN D350000 UNIT PO; -VOLTAREN 0.1%2.5 M1 TOP
[2016-10-20] MEDS ORDERED: COMBIVENT RESPIM4 GM INH (14:06)
[2016-10-20] MEDS ORDERED: ADVAIR 250-501 EACH INH (14:06)
[2016-10-20] MEDS ORDERED: PATIENT'S PHARMACY (14:06)
[2016-10-20] MEDS ORDERED: EQUETRO100 MG PO (14:07)
[2016-10-20] MEDS ORDERED: COREG6.25 MG PO (14:07)
[2016-10-20] MEDS ORDERED: ASPIRIN81 M2 PO (14:07)
[2016-10-20] MEDS ORDERED: PROVENTIL INH0.5 ML NEB (14:07)
[2016-10-20] MEDS ORDERED: ENTOCORT EC3 MG PO (14:07)
[2016-10-20] MEDS ORDERED: PARAFON FORTE500 M2 PO (14:09)
[2016-10-20] MEDS ORDERED: DEXILANT60 MG PO (14:09)
[2016-10-20] MEDS ORDERED: ENTYVIO300 MG (14:09)
[2016-10-20] MEDS ORDERED: HYDROXYZINE HCL25 M1 PO (14:10)
[2016-10-20] MEDS ORDERED: JANUVIA100 MG PO (14:10)
[2016-10-20] MEDS ORDERED: LEVEMIR SUBQ (14:10)
[2016-10-20] MEDS ORDERED: IMDUR-ER30 M3 PO (14:10)
[2016-10-20] MEDS ORDERED: HUMALOG100 UNIT/2 (14:10)
[2016-10-20] MEDS ORDERED: COZAAR PO (14:11)
[2016-10-20] MEDS ORDERED: ANTIVERT PO (14:11)
[2016-10-20] MEDS ORDERED: LANSOPRAZOLE30 M2 PO (14:11)
[2016-10-20] MEDS ORDERED: MIRALAX17 GM PO (14:11)
[2016-10-20] MEDS ORDERED: LISINOPRIL PO (14:11)
[2016-10-20] MEDS ORDERED: NITROSTAT0.4 MG PO (14:12)
[2016-10-20] MEDS ORDERED: OXYCODONE-ACET1 EAC1 PO (14:12)
[2016-10-20] MEDS ORDERED: PHENERGAN PO (14:12)
[2016-10-20] MEDS ORDERED: CLOPIDOGREL75 MG PO (14:12)
[2016-10-20] MEDS ORDERED: MULTIVITAMINS1 EAC3 PO (14:12)
[2016-10-20] MEDS ORDERED: ALDACTONE PO (14:13)
[2016-10-20] MEDS ORDERED: VOLTAREN 0.1%2.5 M1 TOP (14:13)
[2016-10-20] MEDS ORDERED: VITAMIN D350000 UNIT PO (14:13)
[2016-10-20] MEDS ORDERED: CRESTOR PO (14:14)
[2016-10-20] MEDS ORDERED: DILTIAZEM 24HR120 M1 PO (14:16)
[2016-10-20 14:23] LABS: BASOPHIL% 0.7 % (0-2.5); EOSINOPHIL# 0.1 X10e3 (0-0.7); EOSINOPHIL% 1.1 % (0.0-7.0); HEMATOCRIT 39.5 % (35.0-45.0); HEMOGLOBIN 13.3 gm/dL (12.0-16.0); LYMPHOCYTE# 2.9 X10e3 (1.0-3.5); LYMPHOCYTE% 40.9 % (17.0-45.0); MEAN CELL VOLUME 86.9 FL (83-96); MEAN CORPUSCULAR HEMOGLOBIN 29.2 PG (28-34); MEAN CORPUSCULAR HGB CONC 33.6 g/dL (30-36); MEAN PLATELET VOLUME 8.3 FL (6.5-11.5); MONOCYTE# 0.4 X10e3 (0-1.0); MONOCYTE% 6.1 % (3.0-12.0); NEUTROPHIL# 3.7 X10e3 (1.5-7.1); NEUTROPHIL% 51.2 % (40-75); PLATELET COUNT 181 X10e3 (140-420); RED BLOOD COUNT 4.55 X10e (3.90-5.30); RED CELL DISTRIBUTION WIDTH 14.8 % (11.0-15.5); WHITE BLOOD COUNT 7.2 X10e3 (4.0-10.5)
[2016-10-20 14:31] LABS: DIFF IND NO
[2016-10-20 14:31] LABS: POC - CREATININE 0.75 mg/dL (0.44-1.03); POC - GFR >60.0 mL/min (>60)
[2016-10-20 14:45] LABS: INR 0.9; PARTIAL THROMBOPLASTIN TIME 21.8 SECONDS (23.5-31.3); PROTHROMBIN TIME (PATIENT) 10.3 SECONDS (10.0-11.7)
[2016-10-20 14:51] LABS: ALBUMIN SERUM 3.8 g/dL (3.5-5.0); BILIRUBIN, DIRECT 0.1 mg/dL (0.0-0.2); BILIRUBIN,INDIRECT 0.6 mg/dL (0.0-0.9); BILIRUBIN,TOTAL 0.7 mg/dL (0.2-2.0); BUN/CREATININE RATIO 15.71; CALCIUM SERUM 9.1 mg/dL (8.4-10.2); CREATININE SERUM 0.7 mg/dL (0.6-1.4); GLOM FILT RATE Estimated 119.6 mL/min (>60); POTASSIUM 3.8 mmol/L (3.5-5.1)
[2016-10-20 15:42] LABS: POC - CKMB 1.1 ng/mL (0.0-7.9); POC - TROPONIN <0.05 ng/mL (<=0.05)
[2016-10-20 16:16] LABS: URINE SOURCE CLEAN CATCH
[2016-10-20 16:23] LABS: URINE APPEARANCE CLEAR; URINE BILIRUBIN NEG (NEG); URINE BLOOD NEG (NEG); URINE COLOR YELLOW; URINE GLUCOSE >1000 MG/DL (NEG); URINE KETONE 1+ (NEG); URINE LEUKOCYTE ESTERASE NEG (NEG); URINE NITRATE NEG (NEG); URINE PROTEIN TRACE (NEG); URINE SPECIFIC GRAVITY 1.043 (1.003-1.035); URINE UROBILINOGEN 0.2 MG/DL (NEG)
[2016-10-20 16:28] LABS: CULTURE INDICATED? NO
[2016-10-21 08:01] LABS: CHOLESTEROL 232 mg/dL (0-200); HDL CHOLESTEROL 30 mg/dL (35-95); LDL/HDL RATIO 6 RATIO (0-4); TRIGLYCERIDES 141 mg/dL (10-160)
[2016-10-21 08:02] LABS: LDL CHOLESTEROL 174 mg/dL ([, -130])
[2016-10-22 02:45] LABS: URINE SOURCE CLEAN CATCH
[2016-10-22 02:51] LABS: URINE APPEARANCE TURBID; URINE BILIRUBIN NEG (NEG); URINE BLOOD NEG (NEG); URINE COLOR DK YELLOW; URINE GLUCOSE 250 MG/DL (NEG); URINE KETONE TRACE (NEG); URINE LEUKOCYTE ESTERASE 2+ (NEG); URINE NITRATE NEG (NEG); URINE PROTEIN 2+ (NEG); URINE SPECIFIC GRAVITY 1.036 (1.003-1.035)
[2016-10-22 02:52] LABS: CULTURE INDICATED? YES; URINE BACTERIA AUWI NEG (NEGATIVE); URINE SQUAMOUS EPITHELIAL CELL OCC /[HPF]; UWBCS1 AUWI 200-300 (0-5)
[2016-10-22 03:04] LABS: URINE CRYSTALS URIC ACID /[HPF]
[2016-10-22 07:07] LABS: BUN/CREATININE RATIO 18.75; CALCIUM SERUM 8.4 mg/dL (8.4-10.2); CREATININE SERUM 0.8 mg/dL (0.6-1.4); GLOM FILT RATE Estimated 101.8 mL/min (>60); POTASSIUM 4.4 mmol/L (3.5-5.1)
[2016-10-23 06:44] LABS: BUN/CREATININE RATIO 16.66; CALCIUM SERUM 7.4 mg/dL (8.4-10.2); CREATININE SERUM 0.6 mg/dL (0.6-1.4); GLOM FILT RATE Estimated 125.8 mL/min (>60)
[2016-10-24 07:21] LABS: BASOPHIL% 0.5 % (0-2.5); EOSINOPHIL% 0.4 % (0.0-7.0); HEMATOCRIT 34.5 % (35.0-45.0); HEMOGLOBIN 11.5 gm/dL (12.0-16.0); LYMPHOCYTE# 3.2 X10e3 (1.0-3.5); MEAN CELL VOLUME 87.8 FL (83-96); MEAN CORPUSCULAR HEMOGLOBIN 29.2 PG (28-34); MEAN CORPUSCULAR HGB CONC 33.3 g/dL (30-36); MEAN PLATELET VOLUME 8.8 FL (6.5-11.5); MONOCYTE# 0.6 X10e3 (0-1.0); MONOCYTE% 6.7 % (3.0-12.0); NEUTROPHIL# 5.5 X10e3 (1.5-7.1); NEUTROPHIL% 58.4 % (40-75); PLATELET COUNT 172 X10e3 (140-420); RED BLOOD COUNT 3.93 X10e (3.90-5.30); RED CELL DISTRIBUTION WIDTH 15.2 % (11.0-15.5); WHITE BLOOD COUNT 9.5 X10e3 (4.0-10.5)
[2016-10-24 07:38] LABS: DIFF IND NO
[2016-10-24 07:46] LABS: BUN/CREATININE RATIO 15.71; CALCIUM SERUM 8.4 mg/dL (8.4-10.2); CREATININE SERUM 0.7 mg/dL (0.6-1.4); GLOM FILT RATE Estimated 119.6 mL/min (>60); MAGNESIUM 1.7 mg/dL (1.6-3.0)
== END 2016-10-26 00:38 | DRG 948 ==
LOC: CED 13:53 → CEDOF 20:20 → C3A PCU 20:34 → CED 20:34 → C3A PCU 22:00 → CEDOF 22:00 → C3A PCU 10-26 00:38
PROVIDERS: Emergency Medicine; Hospitalist; Physician Assistant Medical
DX: R53.1 Weakness (principal); E11.65 Type 2 diabetes mellitus with hyperglycemia; I10 Essential (primary) hypertension; K50.90 Crohn's disease, unspecified, without complications; M50.823 Other cervical disc disorders at C6-C7 level; Z86.73 Personal history of transient ischemic attack (TIA), and cerebral infarction without residual deficits; Z79.4 Long term (current) use of insulin; I25.10 Atherosclerotic heart disease of native coronary artery without angina pectoris; Z95.5 Presence of coronary angioplasty implant and graft; F31.9 Bipolar disorder, unspecified; E66.9 Obesity, unspecified; Z68.26 Body mass index [BMI] 26.0-26.9, adult; F17.200 Nicotine dependence, unspecified, uncomplicated; Z90.710 Acquired absence of both cervix and uterus; Z88.0 Allergy status to penicillin; Z88.1 Allergy status to other antibiotic agents; Z82.49 Family history of ischemic heart disease and other diseases of the circulatory system; Z83.3 Family history of diabetes mellitus
CPT/HCPCS: 36415; 70450; 70496; 70498; 70551; 72141; 80048; 80061; 80076; 81003; 82553; 82565; 82947; 83036; 83735; 84484; 85025; 85610; 85730; 87086; 92610; 93005; 93306; 94640; 94664; 94760; 96361; 96374; 96375; 97110; 97162; 97166; 97530; 97535; 99285; C9113; G8978-GP; G8979-GP; G8987-GO; G8988-GO; G8996-GN; G8997-GN; G8998-GN; J1650; J1815; J2060; J2270; J2405; J3475; Q9967